=== PATIENT | male | born 1950 | race Caucasian/White ===

== ENCOUNTER 2016-08-27 | Outpatient (CLI) | payer MEDICARE | END 2016-08-27 10:01 | disposition home or self-care (01) ==

== ENCOUNTER 2016-09-30 | Outpatient (CLI) | payer MEDICARE | END 2016-09-30 11:21 | disposition home or self-care (01) ==

== ENCOUNTER 2016-10-28 10:40 | Outpatient (CLI) | payer MEDICARE | END 2016-10-28 10:41 | disposition home or self-care (01) | DX: Z51.5 Encounter for palliative care (principal); I71.03 Dissection of thoracoabdominal aorta; L03.116 Cellulitis of left lower limb; G89.4 Chronic pain syndrome; C34.90 Malignant neoplasm of unspecified part of unspecified bronchus or lung; I25.10 Atherosclerotic heart disease of native coronary artery without angina pectoris; Z98.890 Other specified postprocedural states; G89.29 Other chronic pain; R06.00 Dyspnea, unspecified; Z79.891 Long term (current) use of opiate analgesic; R53.83 Other fatigue; Z66 Do not resuscitate; G24.9 Dystonia, unspecified; K59.00 Constipation, unspecified; R25.1 Tremor, unspecified; F33.9 Major depressive disorder, recurrent, unspecified; F41.9 Anxiety disorder, unspecified; J44.9 Chronic obstructive pulmonary disease, unspecified; M48.06 Spinal stenosis, lumbar region ==

== ENCOUNTER 2016-11-25 11:00 | Outpatient (CLI) | payer MEDICARE | END 2016-11-25 11:01 | disposition home or self-care (01) | DX: Z51.5 Encounter for palliative care (principal); G89.4 Chronic pain syndrome; F41.9 Anxiety disorder, unspecified; F32.9 Major depressive disorder, single episode, unspecified; R53.1 Weakness; I71.03 Dissection of thoracoabdominal aorta; L03.116 Cellulitis of left lower limb; C34.90 Malignant neoplasm of unspecified part of unspecified bronchus or lung; I25.10 Atherosclerotic heart disease of native coronary artery without angina pectoris; R06.02 Shortness of breath; K59.00 Constipation, unspecified; G24.9 Dystonia, unspecified; M19.90 Unspecified osteoarthritis, unspecified site; Z79.891 Long term (current) use of opiate analgesic; J44.9 Chronic obstructive pulmonary disease, unspecified; Z66 Do not resuscitate; Z99.81 Dependence on supplemental oxygen ==

== ENCOUNTER 2016-12-30 11:00 | Outpatient (CLI) | payer MEDICARE ==
--- NOTE | 2017-01-02 08:54 | CONSULTATION NOTE ---
DATE OF CONSULTATION: 12/30/2016 00:00:00 REQUESTING PROVIDER: Cristian Higginbotham MD TIME OF VISIT: 1111:45. TOPIC: Followup palliative care consult. Thank you, Dr. Higginbotham, for asking the Palliative Care Consult Service to be involved in the care of your patient. I am providing support for pain and symptom management, as well as goals of care. The patient is seen in his home setting secondary to the considerable and taxing effort for the patient t o leave the home, as well as to facilitate care conference and evaluate medication adherence in the h ome setting. BRIEF HISTORY OF PRESENT ILLNESS UPDATE: This is a 66-year-old gentleman who has a long and complicat ed history that includes a type B aortic dissection diagnosed in 01/2013 with progression noted in , history of stage IV lung cancer for which he had lobectomy with both radiation and chemotherap y, and in 03/2016 presented with right apical lung mass and periadrenal mass when he was hospitalized for cellulitis of his left leg. He does have longstanding chronic pain specific to his stenosis and has been living in what he calls the "[facility] [place]," waiting for an end-of-life event either attribu bishnu to his cancer or to his aortic dissection. Given his longstanding depression and anxiety, we had negotiated, at our last visit, that he would fo llow up with the oncologist, to get some kind of direction, as far as his overall health and planning for the future. This appointment is set with Dr. Soriano on 01/04/2017 of this month. He does remain quite anxious about this, is unclear if he wants it to be positive, or, if it is negative, he is als o concerned about his longstanding quality of life and chronic health issues. He is already thinking ahead about followup with his thoracic surgeon. He was redirected to try and just stay centered with one step at a time. What he has noted recently is some increased pain in his left lower chest/thoracic area. This is wher e the original site of the cancer is, which has heightened his anxiety. He also is reporting increase d right hip pain that gets worse going up and down as well. Overall his pain is currently managed on his oxycodone 10 mg 2 tablets t.i.d., his meloxicam 7.5 mg b.i.d., as well as some intermittent Valiu m, more focused on his anxiety. He is remaining weight neutral at 225. His appetite has been good. He has had increased episodes of breathlessness, though these do not always translate into hypoxia, and he is only wearing his oxygen intermittently. He does have increased respiratory effort noted with b reathing. CODE STATUS: The patient does have a POLST, DO NOT ATTEMPT RESUSCITATION, LIMITED INTERVENTIONS, DETE RMINE USE OF ANTIBIOTICS WITH COMFORT THE GOAL, WELL NO MEDICALLY ASSISTED NUTRITION; has no t resolved the problem of DPOA yet. SOCIAL HISTORY: The patient is since 11/2014. His friend, Radha, who recently has moved in, h e is saying that they are having some difficulty, which is unfortunate, as he does need assistance an d will need long-term care planning if Radha is not going to be part of his care team. I will leave a message for the medical palliative care social media content manager, as she was not present today for the visit. PERFORMANCE STATUS: The patient is only able to ambulate short distances in his home without exacerba tion of his pain. He is able to independently bathe. He does get quite frustrated and often overdoes activity that tends to exacerbate his pain. I would put him at a palliative care performance status o f 60%. REVIEW OF SYSTEMS HEENT: He has dystonia attributed to his aneurysm. His voice remains soft and raspy. CARDIOVASCULAR: Left chest pain as noted above. RESPIRATORY: He does have shortness of breath, is inconsistent with his oxygen use. No cough, but villegas s get winded with activity. GASTROINTESTINAL: Constipation, currently controlled. GENITOURINARY: He denies any trouble with voiding. MUSCULOSKELETAL: He remains quite deconditioned with lower extremity weakness; does spend quite a bit of time sitting in a chair. INTEGUMENTARY: His skin is quite dry. NEUROLOGIC: He does have short-term memory problems. Does have tremors in his upper extremities, this is longstanding. PSYCHIATRIC: He continues to struggle with depression and anxiety; does feel like this is exacerbated the closer we are getting to his oncology appointment. ENDOCRINE: No history of diabetes or hypothyroidism. HEMATOLOGIC/IMMUNOLOGIC: No further difficult with his teeth. No recurrent cellulitis. He reports his swelling has improved, and he is not wearing his hose today. PHYSICAL EXAMINATION GENERAL: The patient is quite fatigued, somewhat leahy in color. Gets breathless with conversation. Hi s voice is soft and raspy. HEENT: His eyes have periorbital edema. His mucous membranes are moist. He does have poor dentition. NECK: Trachea midline. RESPIRATORY: Breath sounds are diminished throughout, the left lower lobe without breath sounds. No w heezing, crackles, or rhonchi. His O2 saturations are 95% at rest. CARDIOVASCULAR: His pulse is 72, blood pressure 138/82, temperature 95.6. ABDOMEN: Soft. SKIN: Color pale. EXTREMITIES: He is able to get from sitting to standing, ambulates short distance with some increase in pain behaviors. IMPRESSION: This is a 66-year-old gentleman with multiple serious underlying illnesses, chronic obstr uctive pulmonary disease, history of lung cancer with a mass, and an aortic aneurysm. He perceives hi s quality of life as quite poor, his pain is only moderately controlled, as well as ongoing anxiety a nd depression. MEDICATION ALLERGIES 1. PENICILLIN. 2. AMOXICILLIN. 3. CLINDAMYCIN. MEDICATION LIST 1. Gabapentin 900 t.i.d. 2. Amlodipine 2.5 mg daily. 3. Labetalol 100 mg b.i.d. 4. Diazepam 5 mg 1-2 tabs up to 4 times a day. 5. Oxycodone 2 tabs t.i.d. 6. Extended release Tylenol 650 mg b.i.d. 7. Meloxicam 7.5 mg b.i.d. 8. Multivitamin daily. 9. Senna with ALEKSANDAR 2 tabs b.i.d. 10. Effexor 75 mg daily. RECOMMENDATIONS/COUNSELING DONE 1. Chronic pain, multifactorial in origin. He has longstanding lumbar stenosis. He is on his oxycodon e 10 mg 2 tabs every 8 hours, as well as his gabapentin 900 mg TID. We had initiated Mobic to 7.5 mg b.i.d., with unclear benefit at this point in time. Patient is most likely a better candidate for carlos ething more long acting; he does not have pharmacy benefit; did explore methadone as an option, but nirmala yanez reports had a bad response when he tried it previously. We will await outcome of his oncology appoi ntment before titrating meds further. 2. Anxiety. This is somewhat exacerbated with his increased stress with his caregiver, impending onco logy appointment, and his brother Sukh's health status. He has increased his Valium use somewhat to b e able to sleep better at night but was remaining within his allotted 4 per day. 3. Depression without psychotic features. This had improved; it is unclear if this has exacerbated or is anxiety, at this point in time we will not titrate meds. 4. Generalized weakness. Patient remains somewhat unmotivated to be more active; have suggested vario us ways to improve his activity level, but he continues with barriers, particularly around pain and e nergy. 5. Advanced care planning. We are moving forward, as far as evaluating his underlying disease burden. He does have an appointment with the oncologist, as he now may need some support in the future some personal care and will follow up with the medical palliative care social media content manager, and as well needs a durable power of finance attorney for health care. Time spent 45 minutes, with greater than 50% of this done in counseling and coordination of care, naila ghing benefits and burdens regarding adjustment of pain medication, counseling for anxiety, and antic ipatory guidance. JOB #: [id number] EXT JOB #:[id number]
== END 2016-12-30 11:01 | disposition home or self-care (01) ==
LOC: PC 11:00
PROVIDERS: ATTEND Nurse Practitioner Adult Health
DX: Z51.5 Encounter for palliative care (principal); G89.29 Other chronic pain; F41.9 Anxiety disorder, unspecified; F32.9 Major depressive disorder, single episode, unspecified; R53.1 Weakness; I71.00 Dissection of unspecified site of aorta; Z85.118 Personal history of other malignant neoplasm of bronchus and lung; R91.8 Other nonspecific abnormal finding of lung field; E27.9 Disorder of adrenal gland, unspecified; R07.9 Chest pain, unspecified; Z99.81 Dependence on supplemental oxygen; Z66 Do not resuscitate; G24.9 Dystonia, unspecified; R06.02 Shortness of breath; K59.00 Constipation, unspecified
CPT/HCPCS: 99349

== ENCOUNTER 2017-01-25 14:18 | Outpatient (CLI) | payer MEDICARE ==
--- NOTE | 2017-01-26 06:09 | CONSULTATION NOTE ---
DATE OF CONSULTATION: 01/25/2017 00:00:00 REQUESTING PROVIDER: Cristian Higginbotham MD. TIME OF VISIT: 2:00 p.m. to 2:45 p.m. TOPIC: Followup palliative care consult. Thank you Dr. Higginbotham for asking the palliative care consult service to be involved in the care of y our patient. I am providing support for pain and symptom management, as well as goals of care. HISTORY OF PRESENT ILLNESS: This is a 66-year-old gentleman who has a long and complicated history th at includes a type C aortic dissection diagnosed in 01/2013 with progression noted in May 2016. 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 Postoperatively received adjuvant chest radiotherapy and 4 cycles of carboplatin /Alimta which ended in 2009. In January of 2013 was when he had his acute aortic dissection which was managed wi medical therapy. In followup with the oncologist, he has mostly had progressive shortness of breat h and decreased activity. He did get a followup CT scan that does show the right apical nodular opaci ty, but it was unchanged, the previous aortic dissection involving the aortic arch and extending into the descending thoracic aorta in the abdomen was unchanged, as well. So, the patient's underlying "l kong threatening" conditions do appear to be stable at this point in time. In reviewing this with the patient he reports he has partially felt relieved and partially disappointed as he has continued to h ave diminished quality of life. The patient has had progressive breathlessness. Patient requires continuos oxygen at 1-2 liters per n patience cannula. Today we are measuring his oxygen saturations and looking at his oxygen qualification. Off room air with 60-feet of walking he does decrease to 84% with increased respiratory rate of about 28. In sitting it took him about 90% to recover at 2 minutes. After 5 minutes he was up to about 96% . His breath sounds are diminished throughout, particularly in the area of his left upper lobectomy. He presents with no productive cough, though, does report dry cough that he attributes to ongoing all ergies. He does have an Albuterol nebulizer which he has not used. His oncologist did encourage him t o be more aggressive with his pulmonary toilet. We did actually approach possibly looking at pulmonar y rehab. Please see palliative care discussion below. The patient does, at baseline, wear his oxygen at 1 to 2 liters. Today he came in to the outpatient setting and did not bring his oxygen and present ed with very poor activity tolerance and desaturating with any kind of activity as noted above. The patient has longstanding chronic back pain which increases with standing. He remains on oxycodone 10 mg 2 tabs t.i.d. and his meloxicam 7.5 mg b.i.d. This continues to limit his activity and provide s him significant decrease in quality of life. He continues with fatigue and activity intolerance. He denies nausea, his appetite has been good. His weight has been stable at 228.3. Shortness of breath as noted above. He does appear to be much more depressed today, staying much more perseverative and p ervasive as far as his depressed feelings and does admit to increased anxiety with maximizing his use of Valium at 3 to 4 tabs a day, mostly using though at bedtime to help him sleep. He does have longs tanding PTSD and general anxiety disorder. He does perceive his quality of life as quite poor. CODE STATUS: THE PATIENT HAS A POLST, DO NOT ATTEMPT RESUSCITATION, LIMITED INTERVENTIONS, DETERMINE THE USE OF ANTIBIOTICS WITH COMFORT THE GOAL, WELL NO MEDICALLY ASSISTED NUTRITION. He has n ot resolved the problem of his DPOA yet. SOCIAL HISTORY: The patient has been since 11/2014. His new roommate, Radha, they are having some difficulty as far as communication and just sharing "space." They have known each other long ter m and I suspect there has continued to be some tension and strife between them. PERFORMANCE STATUS: The patient is only able to ambulate short distance without exacerbation of his p ain or dyspnea. He has been able to independently bathe. He does sometimes push and overdue his activ ity that exacerbates his pain. I would put him at a palliative care performance status of 60%. ENT: He does report "allergies." He does have mild hearing loss. CARDIOVASCULAR: Denies chest pain. RESPIRATORY: As noted above. GASTROINTESTINAL: Constipation is currently controlled. GENITOURINARY: Not addressed. MUSCULOSKELETAL: He is quite deconditioned with lower extremity weakness. Reports he spends about 80% of his time sitting in a chair. INTEGUMENT: His skin is quite dry and flaky. NEUROLOGIC: He does have intermittent short term memory problems, continued tremors in both upper ext remity, this is longstanding. PSYCHIATRIC: He continues to struggle with his depression and anxiety. This does appear to have exace rbated. We did spend some time exploring some triggers, particularly related to his oncology appointm ent. This has been longstanding high anxiety point for him. ENDOCRINE: No history of diabetes or hypothyroidism. HEMATOLOGIC/IMMUNOLOGIC: Has not had any further infections. PHYSICAL EXAMINATION: GENERAL: The patient is actually a little bit better groomed today, somewhat leahy in color. Gets kelsey thless with conversation. His voice is soft and raspy. HEENT: Continues with periorbital edema. His mucous membranes are moist. He does have poor dentition. NECK: His trachea is midline. RESPIRATORY: Breath sounds as noted above. Saturations as noted above. CARDIOVASCULAR: His temperature is 36.9, blood pressure 145/86, pulse is 83. ABDOMEN: Rounded and soft. SKIN: Quite dry and peely. EXTREMITIES: He is able to get from sitting to standing with some assistance. He is using his cane as an assistive device. He is pacing himself and noted pain behaviors with ambulation. This is a 66-year-old gentleman with multiple serious underlying illnesses, chronic obstructive pulmo nary disease, history of lung cancer and an aortic aneurysm. He perceives his quality of life as quit e poor. Does present with exacerbation of his depression and anxiety. MEDICATION ALLERGIES: 1. PENICILLIN. 2. AMOXICILLIN. 3. CLINDAMYCIN. MEDICATION LIST: 1. Gabapentin 900 mg t.i.d. p.o. 2. Amlodipine 2.5 mg p.o. daily. 3. Labetalol 100 mg p.o. b.i.d. 4. Diazepam 5 mg 1 to 2 tablets up to 4 times a day p.o. 5. Oxycodone 10 mg p.o. 2 tabs t.i.d. 6. Extended release Tylenol 650 mg p.o. b.i.d. 7. Meloxicam 7.5 mg p.o. b.i.d. 8. Multivitamin daily 1 tab p.o. daily. 9. Senna with ALEKSANDAR 2 tabs p.o. up to b.i.d. 10. Effexor, will increase this to 100 mg daily today. Prescriptions for his diazepam, Effexor, and oxycodone were provided. RECOMMENDATIONS/COUNSELING DONE: 1. Chronic pain, multi-factorial in origin. He has longstanding lumbar stenosis. He is on his oxycodo ne 10 mg 2 tabs every 8 hours, as well as gabapentin 900 mg t.i.d. Had initiated Mobic 7.5 mg b.i.d. At this point in time he is satisfied with his current regimen. He continues to have barriers regardi ng his pharmacy benefit. I do believe he would benefit from some physical therapy, but continues to p ut up road blocks regarding this. 2. Anxiety. This is exacerbated with his latest appointment and anxiety waiting for the results regar ding his Oncology appointment. He is getting ready to go visit his brother, Sukh, who is a quadripleg ic, down at the [place]. Has had very mixed feelings about this and feels this has triggered some of this. He had been increasing his Valium use to be able to sleep better at night. Counseling was done weigh ing benefits and burdens. Will go ahead and increase his Effexor slowly up to 100 mg daily. 3. Depression without psychotic features. This does appear quite pervasive and persistent as far as h is depressed mood. As noted in the last note, will go ahead and titrate his medications. Did challen ge him as far as cognitive behavioral therapy about reframing, patient setting goals and getting out of his house. 4. Generalized weakness. The patient does remain somewhat unmotivated to be more active. Have sugges bishnu given the fact we know he is no longer needing to worry about his progressive lung cancer, to con tinue to work on his health. 5. Dyspnea. Did spend some time counseling and recommending pulmonary rehab. He would be responsible for $40 a visit, but in weighing benefits and burdens it may be a good investment for him. If he want s to go forward with that I will have to get some more recent pulmonary function tests. 6. COPD. Patient requires continuous oxygen at 2 liters related to his hypoxia with activity and acti vity intolerance. TIME SPENT: Forty-five minutes with greater than 50% of this done in counseling regarding benefits an d burdens, addressing his antidepressant, instructing to decrease his Valium use, if possible, talha gillespie for anxiety, cognitive behavioral interventions and anticipatory guidance. JOB #: [id number] EXT JOB #:[id number]
== END 2017-01-25 14:19 | disposition home or self-care (01) ==
LOC: PC 14:18
PROVIDERS: ATTEND Nurse Practitioner Adult Health
DX: Z51.5 Encounter for palliative care (principal); G89.29 Other chronic pain; F41.9 Anxiety disorder, unspecified; F32.9 Major depressive disorder, single episode, unspecified; R53.1 Weakness; R06.00 Dyspnea, unspecified; J44.9 Chronic obstructive pulmonary disease, unspecified; I71.00 Dissection of unspecified site of aorta; Z99.81 Dependence on supplemental oxygen; Z90.2 Acquired absence of lung [part of]; Z79.891 Long term (current) use of opiate analgesic; F43.10 Post-traumatic stress disorder, unspecified; Z66 Do not resuscitate; Z85.118 Personal history of other malignant neoplasm of bronchus and lung
CPT/HCPCS: 99215

== ENCOUNTER 2017-02-23 15:30 | Outpatient (CLI) | payer MEDICARE ==
--- NOTE | 2017-02-23 23:42 | PROVIDER PROGRESS NOTE ---
Palliative Care Follow Up - Referral Referring Provider: Cristian Higginbotham MD Referral setting: Home (Seen in home setting secondary to breathlessness and facilitating conference with diversity intern Radha.) - Information Sources History obtained from: Patient Exam limitations: No limitations - History of Present Illness Update Brief HPI Update: This is a 66-year-old gentleman with a long and complicated history including aortic dissection diagnosed in January 2013 with progression noted in May 2016 , history of stage IV lung cancer for which he had lobectomy with both radiation and chemotherapy, and in Mar 2016 presented with R apical lung mass and a ender-adrenal mass during a hospitalization for L leg cellulitis. He has long-standing chronic pain related to spondylosis of the lumbar and osteoarthritis in multiple joints, most significantly in R hip. On 01/17/2017 he had a follow-up CT scan showing the right apical nodular opacity was unchanged from the previous CT scan, as was the left upper lobectomy and the aortic dissection. So these life-threatening conditions appear to be stable at this time. In addition his chronic breathlessness has remained unchanged since his last visit with palliative care. He was not on oxygen during the visit and several times was able to get up from his chair and walk short distances without it. He just started to use his Albuterol nebulizer again in the past several days. His resting O2 sat is 95% which he reports is normal for hi. When we discussed the option of pulmonary rehabilitation, he states he will do it when they start offering free classes. (Co-pay is $40/session.) His biggest complaint is his chronic back pain limits his mobility and ability to do things like take a road trip or be more active. Pain levels on current opioid and gabapentin regimen are stable and he is satisfied. I counselled regarding increasing his activity to break the chronic pain cycle. He admitted that he losing weight for a period a few years ago lessened his pain. He has noticed his left foot doesnt work. I recommended evaluation with PT for possible foot drop, counselling him on the safety issue and risks involved with falls and hip fractures. He is reluctant to follow any therapy because he can t afford it. His R hip is painful and was told some years ago that it likely will need eventual replacement. His L hip replaced years ago, perhaps 2005. He has not noticed an improvement in his depression but admitted that he only started the Venlafaxine 100mg dosage 3 days ago because he wanted to use up the old medication first. Social History - Living Situation Living arrangement: At home Living Situation: With friend(s) (Radha) Medications/Allergies - Medications Home Medications: Ambulatory Orders Medication Instructions Recorded Confirmed Diazepam [Valium] 2 tab PO QID PRN MDD 2 tabs up to 02/16/13 02/24/17 q.i.d. Labetalol [Trandate] 200 mg PO TID 02/27/13 02/25/17 Gabapentin [Neurontin] 900 mg PO TID 05/16/16 02/24/17 Oxycodone HCl 20 mg PO TID 05/16/16 02/25/17 amLODIPine [Norvasc] 2.5 mg PO DAILY 05/16/16 05/16/16 Sennosides/Docusate Sodium 2 tab PO MDD up to BID 05/17/16 05/17/16 [Senna-S Tablet] Acetaminophen [Tylenol] 650 mg PO BID 02/25/17 02/25/17 Meloxicam 7.5 mg PO BID 02/25/17 02/25/17 Multivitamin [Multiple Vitamins] 1 tab PO DAILY 02/25/17 02/25/17 Venlafaxine HCl 100 mg PO DAILY 02/25/17 02/25/17 - Allergies Allergies/Adverse Reactions: Allergies Allergy/AdvReac Type Severity Reaction Status Date / Time Penicillins Allergy Rash Verified 10/16/15 11:35 Review of Systems - Constitutional Constitutional: reports: Other (limited activity tolerance due to chronic back pain) - Cardiovascular Cariovascular: reports: Other. denies: Chest pain - Respiratory Respiratory: reports: SOB with exertion - Gastrointestinal Gastrointestinal: denies: Abdominal pain - Musculoskeletal Musculoskeletal: reports: Back pain (long-standing, chronic), Muscle weakness ( lower extremities), Joint pain (R hip.), Other (L hip has been replaced) - Neurological Neurological: reports: Other (numbness in lower extremities; left "foot drop") - Psychiatric Psychiatric: reports: Depression (no change), Anxiety (no change) Physical Examination - Vital Signs Temperature: 96.3 C Pulse Rate: 60 O2 Saturation: 95 Blood Pressure: 140/98 - Physical Exam General Appearance: positive: No acute distress Eyes Bilateral: positive: EOMI, No lid inflammation, No scleral icterus ENT: positive: No signs of dehydration Neck: positive: Trachea midline Respiratory: positive: Chest non-tender, No respiratory distress. negative: Breath sounds nml (diminished breath sounds) Cardiovascular: positive: Regular rate & rhythm Abdomen: positive: Non-tender, No organomegaly, Nml bowel sounds, No distention Skin: positive: No symptoms Extremities: positive: Nml appearance, No pedal edema Neurologic/Psychiatric: positive: Oriented x3, Motor nml, Sensation nml, Mood/ affect nml Palliative Care - POLST Patient has POLST: Yes POLST Status: DNR, Limited Interventions Pain: Pain unchanged Drowsiness: None Nausea: None Anxiety: Moderate (4-6) Dyspnea: Moderate (4-6) Anorexia: None Insomnia: Sleeps well Constipation: No Feelings of wellbeing/Perceived Quality of Life: No change Performance Status: Previous level of function prior to this episode: Limited due to chronic pain and breathlessness. 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 He is able to perform ADLs and IADLs and has the assistance of his friend/roommate Radha who lives at his house and helps him with driving, etc. Current level of functioning: Unchanged Palliative Care Performance Status: 70% - Palliative Care Discussion: Who is present: The patient, his friend and helper Radha, and myself. Surrogate decision maker: Sukh Dimas, brother Patient/Family understanding of the illness: He complains of pain limiting his mobility and that he cant participate in activities or travel, but is expresses reluctance or inaction at various recommendations (yoga, PT) to help break the pain cycle. He views his quality of life as relative: in relation to his brother who is quadriplegic, it is good; when he compares it to friends who take road trips, or are able to go out surfing, he perceives it as limited. Radha voiced concern over his risk of falling due to his L foot drop. I provided savings counselor and information foot drop and risk of falls and sequelae. Most important goals: His weekend job is important to him as he relies on the additional income and it is also a means of social connection. He has worked there a long time, though in a different capacity than in the past, when he was able to perform more strenuous activity. He has a good relationship with the owners and is well-known amongst the customers, and he enjoys and looks forward to the social interaction. He is consistenly reluctant to pursue therapy that could help with his pain, mobility issues, and dyspnea, not willing to pursue PT or pulmonary therapy. This is related to financial concerns but could likely related to his depression. Patient/family concerns: His anxiety is somewhat alleviated after imaging revealed that lung nodule and AAA have not worsened. He continues to perceive quality of life as low due to his limited mobility secondary to pain and breathlessness. Finances are a major concern and contribute to his reluctance to pursue either physical therapy or pulmonary therapy. Family Conference: Radha present; AKASH not present. Impression and Recommendations - Palliative Care Impression: This is a 66-year-old gentleman with multiple serious underlying illnesses including COPD, h/o lung cancer and an aortic aneurysm. Pain is moderately controlled, depression and anxiety are on-going. Recommendations/Counseling Done: 1. Chronic pain: Recommended evaluation with Physical Therapy. Pain levels are stable on current regimen of gabapentin 900mg TID and oxycodone 20mg TID. Continue Senna with Omer 2 tabs up to BID for opioid-induced constipation. He is [facility] through the current cycle of oxycodone and diazepam and we agreed he will call for a refill in two weeks, and then well change our visit schedule to coincide with opioid refills. If stable, visits can be scaled back to every month. 2. Anxiety: Managed with Valium 5mg 1 tab up to four times a day. He usually takes 2 at night. 3. Depression: He just started the new dosing of venlafaxine (100mg daily). Monitor for improvement at next visit. 4. Dyspnea: Recommend pulmonary rehabilitation. Continue oxycodone and nebulizer treatments. Time Spent: 45 minutes with greater than 50% of this done in counseling and coordination of care, and weighing benefits and burdens of different treatment options.
== END 2017-02-23 15:31 | disposition home or self-care (01) ==
LOC: PC 15:30
PROVIDERS: ATTEND Nurse Practitioner
DX: Z51.5 Encounter for palliative care (principal); G89.29 Other chronic pain; Z79.891 Long term (current) use of opiate analgesic; F41.9 Anxiety disorder, unspecified; F32.9 Major depressive disorder, single episode, unspecified; R06.00 Dyspnea, unspecified; I71.00 Dissection of unspecified site of aorta; Z85.118 Personal history of other malignant neoplasm of bronchus and lung; R91.8 Other nonspecific abnormal finding of lung field; M19.91 Primary osteoarthritis, unspecified site; Z79.51 Long term (current) use of inhaled steroids; R06.09 Other forms of dyspnea; M62.81 Muscle weakness (generalized); Z66 Do not resuscitate; I71.4 Abdominal aortic aneurysm, without rupture; J44.9 Chronic obstructive pulmonary disease, unspecified
CPT/HCPCS: 99349

== ENCOUNTER 2017-05-04 13:10 | Outpatient (CLI) | payer MEDICARE ==
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
== END 2017-05-04 13:11 | disposition home or self-care (01) ==
LOC: PC 13:10
PROVIDERS: ATTEND Nurse Practitioner
DX: Z51.5 Encounter for palliative care (principal); G89.29 Other chronic pain; M47.9 Spondylosis, unspecified; M16.11 Unilateral primary osteoarthritis, right hip; R05 Cough; J42 Unspecified chronic bronchitis; F41.9 Anxiety disorder, unspecified; Z79.891 Long term (current) use of opiate analgesic; Z79.899 Other long term (current) drug therapy; Z85.118 Personal history of other malignant neoplasm of bronchus and lung; Z86.79 Personal history of other diseases of the circulatory system; Z66 Do not resuscitate
CPT/HCPCS: 99349

== ENCOUNTER 2017-05-23 08:00 | Outpatient (CLI) | payer MEDICARE ==
[2017-05-23 19:33] LABS: BASOPHILS % (AUTO) 0.4 %; EOSINOPHILS # (AUTO) 0.2 10^3/uL (0.0-0.7); EOSINOPHILS % (AUTO) 3.2 %; HCT - HEMATOCRIT 45.4 % (42.0-52.0); HGB - HEMOGLOBIN 14.8 g/dL (14.0-18.0); LYMPHOCYTES # (AUTO) 1.1 10^3/uL (1.5-3.5); LYMPHOCYTES % (AUTO) 14.7 %; MEAN CORPUSCULAR HEMOGLOBIN 30.1 pg (27.0-31.0); MEAN CORPUSCULAR HGB CONC 32.6 g/dL (32.0-36.0); MEAN CORPUSCULAR VOLUME 92.2 fL (80.0-94.0); MEAN PLATELET VOLUME 8.5 fL (7.4-11.4); MONOCYTES # (AUTO) 0.6 10^3/uL (0.0-1.0); MONOCYTES % (AUTO) 7.8 %; NEUTROPHILS # (AUTO) 5.4 10^3/uL (1.5-6.6); NEUTROPHILS % (AUTO) 73.9 %; RED BLOOD COUNT 4.92 10^6/uL (4.70-6.10); RED CELL DISTRIBUTION WIDTH 13.7 % (12.0-15.0); UNCORRECTED WHITE BLOOD COUNT 7.3 x10^3/uL; WHITE BLOOD COUNT 7.3 x10^3/uL (4.8-10.8)
[2017-05-23 19:37] LABS: ALBUMIN/GLOBULIN RATIO 1.5 (1.0-2.2); BILIRUBIN,TOTAL 0.6 mg/dL (0.2-1.0); CALCIUM 9.2 mg/dL (8.5-10.3); POTASSIUM 4.9 mmol/L (3.5-5.0); TOTAL PROTEIN 6.8 g/dL (6.7-8.2)
== END 2017-05-23 08:01 ==
LOC: LAB.WCP 08:00
PROVIDERS: ATTEND Physician Assistant Medical
DX: R05 Cough (principal); J44.9 Chronic obstructive pulmonary disease, unspecified; C34.90 Malignant neoplasm of unspecified part of unspecified bronchus or lung; Z51.81 Encounter for therapeutic drug level monitoring; Z79.899 Other long term (current) drug therapy
CPT/HCPCS: 36415; 80053; 85025

== ENCOUNTER 2017-05-30 11:58 | Outpatient (CLI) | payer MEDICARE ==
[2017-05-30] MEDS ORDERED: IOPAMIDOL-300 100 ML VIAL ONE (12:23)
[2017-05-30] MEDS ORDERED: IOPAMIDOL-300 100 ML VIAL IVP ONE (13:20)
--- NOTE | 2017-05-30 15:30 | CT Report ---
CT OF THE CHEST WITH CONTRAST: 05/30/2017 CLINICAL INDICATION: Chronic cough, COPD. TECHNIQUE: Axial CT images of the chest were obtained with 80 mL of Isovue-300 intravenously. COMPARISON: 05/16/2016. FINDINGS: The heart is not enlarged. Known type B aortic dissection appears unchanged from previous. Postoperative changes in the left hilum are stable. The lungs again demonstrate emphysema and apical scarring. Right apical nodule has decreased from previous, now measuring 1.4 cm maximal diameter, and likely represents confluent apical scar. No new consolidation, effusion, or pneumothorax is present. Limited evaluation of upper abdominal structures demonstrates normal adrenal glands. The osseous structures demonstrate degenerative and postsurgical changes. IMPRESSION: 1. STABLE EMPHYSEMA AND BIAPICAL SCARRING. 2. STABLE POSTOPERATIVE CHANGES IN THE LEFT CHEST. 3. STABLE AORTIC DISSECTION. 4. THE PREVIOUSLY NOTED NODULE AT THE RIGHT APEX HAS DECREASED IN SIZE, NOW MEASURING 1.4 CM MAXIMAL DIAMETER (PREVIOUSLY 1.7 CM), AND IS LIKELY A COMPONENT OF THE APICAL SCARRING. In accordance with CT protocol optimization, one or more of the following dose reduction techniques were utilized for this exam: automated exposure control, adjustment of mA and/or KV based on patient size, or use of iterative reconstructive technique. JOB #: [id number] EXT JOB #: MTDD
== END 2017-05-30 11:59 | disposition home or self-care (01) ==
LOC: DI 11:58
PROVIDERS: ATTEND Physician Assistant Medical
DX: J43.9 Emphysema, unspecified (principal); I71.00 Dissection of unspecified site of aorta
CPT/HCPCS: 71260; Q9967

== ENCOUNTER 2018-05-18 08:00 | Outpatient (CLI) | payer MEDICARE | END 2018-05-18 08:01 | disposition home or self-care (01) | LOC: LAB.R 08:00 | PROVIDERS: ATTEND Family Medicine | DX: L72.3 Sebaceous cyst (principal) ==

== ENCOUNTER 2018-09-07 11:23 | Outpatient (CLI) | payer MEDICARE ==
[2018-09-07 11:39] LABS: BASOPHILS % (AUTO) 0.4 %; EOSINOPHILS # (AUTO) 0.1 10^3/uL (0.0-0.7); EOSINOPHILS % (AUTO) 1.6 %; HGB - HEMOGLOBIN 14.2 g/dL (14.0-18.0); LYMPHOCYTES # (AUTO) 0.8 10^3/uL (1.5-3.5); LYMPHOCYTES % (AUTO) 14.7 %; MEAN CORPUSCULAR HEMOGLOBIN 30.9 pg (27.0-31.0); MEAN CORPUSCULAR VOLUME 93.7 fL (80.0-94.0); MONOCYTES # (AUTO) 0.5 10^3/uL (0.0-1.0); MONOCYTES % (AUTO) 8.5 %; NEUTROPHILS # (AUTO) 4.2 10^3/uL (1.5-6.6); NEUTROPHILS % (AUTO) 74.8 %; PLT - PLATELET COUNT 201 10^3/uL (130-450); RED CELL DISTRIBUTION WIDTH 13.2 % (12.0-15.0); WHITE BLOOD COUNT 5.6 x10^3/uL (4.8-10.8)
[2018-09-07 11:56] LABS: ALBUMIN 4.2 g/dL (3.2-5.5); ALBUMIN/GLOBULIN RATIO 1.3 (1.0-2.2); ALKALINE PHOSPHATASE 81 IU/L (42-121); ALT ALANINE AMINOTRANSFERASE 17 IU/L (10-60); AST ASPARTATE AMINOTRANSFERASE 23 IU/L (10-42); BILIRUBIN,TOTAL 0.7 mg/dL (0.2-1.0); BUN - BLOOD UREA NITROGEN 26 mg/dL (6-20); CARBON DIOXIDE - CO2 33 mmol/L (21-32); CHLORIDE 98 mmol/L (101-111); CHOL/HDL RATIO 4.6 (<5.0); CHOLESTEROL 205 mg/dL; GFR - MDRD 74 (>89); GLUCOSE 119 mg/dL (70-100); HDL CHOLESTEROL 45 mg/dL; LDL CHOLESTEROL,CALCULATED 134 mg/dL; SODIUM 140 mmol/L (135-145); TOTAL PROTEIN 7.4 g/dL (6.7-8.2); VLDL CHOLESTEROL 26 mg/dL
== END 2018-09-07 11:24 | disposition home or self-care (01) ==
LOC: LAB 11:23
PROVIDERS: ATTEND Family Medicine
DX: E78.5 Hyperlipidemia, unspecified (principal); I25.10 Atherosclerotic heart disease of native coronary artery without angina pectoris; J45.909 Unspecified asthma, uncomplicated; C34.90 Malignant neoplasm of unspecified part of unspecified bronchus or lung; I10 Essential (primary) hypertension
CPT/HCPCS: 36415; 80053; 80061; 83721; 84443; 85025

== ENCOUNTER 2018-11-07 11:34 | Outpatient (CLI) | payer MEDICARE ==
[2018-11-07 19:16] LABS: CALCIUM 8.7 mg/dL (8.5-10.3); CREATININE 0.9 mg/dL (0.6-1.2)
== END 2018-11-07 11:35 | disposition home or self-care (01) ==
LOC: LAB.WCP 11:34
PROVIDERS: ATTEND Family Medicine
DX: Z12.5 Encounter for screening for malignant neoplasm of prostate (principal)
CPT/HCPCS: 36415; 80048; G0103; 84153

== ENCOUNTER 2019-02-13 09:55 | Outpatient (CLI) | payer MEDICARE ==
--- NOTE | 2019-02-13 14:23 | XRAY Report ---
Reason: COUGH,CHRONIC/HYPOXEMIA Procedure Date: 02/13/2019 Accession Number: [id number] / [id number] Procedure: [facility]CP - Chest 2 View X-Ray CPT Code: 03673 FULL RESULT: EXAM: CHEST RADIOGRAPHY EXAM DATE: 02/13/2019 10:32 AM. CLINICAL HISTORY: Cough, chronic/hypoxemia. COMPARISON: CHEST W/ 05/30/2017 1:04 PM. TECHNIQUE: 2 views. FINDINGS: Lungs/Pleura: Postsurgical changes in the left hilar region and volume loss attest to prior lobectomy. There are abnormal lung markings within the aerated left lung, interstitial in appearance, nonspecific. Right lung is clear as seen. There is likely a small left pleural effusion. No effusion on the right. No sizable pneumothorax. Mediastinum: The cardiomediastinal silhouette is partially obscured by left-sided pulmonary volume loss and chronic elevation of the left hemidiaphragm, better seen on the 2017 CT, overall stable when accounting for differences in technique. Other: None. IMPRESSION: Abnormal appearance of the residual left lung with interstitial markings and acute airspace disease difficult to exclude on the left. Favor postsurgical findings versus edema in the setting of a small surrounding pleural effusion. No wilbert lobar consolidation. RADIA
== END 2019-02-13 09:56 | disposition home or self-care (01) ==
LOC: DI.WCP 09:55
PROVIDERS: ATTEND Family Medicine
DX: R91.8 Other nonspecific abnormal finding of lung field (principal)
CPT/HCPCS: 71046

== ENCOUNTER 2019-02-14 17:59 | Outpatient (CLI) | payer MEDICARE | END 2019-02-14 18:00 | disposition critical access hospital (66) | LOC: EMS 17:59 | PROVIDERS: ATTEND Surgery | DX: R46.4 Slowness and poor responsiveness (principal); R05 Cough; R09.89 Other specified symptoms and signs involving the circulatory and respiratory systems; Z99.81 Dependence on supplemental oxygen | CPT/HCPCS: A0425; A0429 ==

== ENCOUNTER 2019-02-14 18:13 | Emergency (ER) | payer MEDICARE ==
--- NOTE | 2019-02-14 18:40 | ED Physician Documentation ---
History of Present Illness - Stated complaint Stated Complaint: ALOC - Chief complaint Chief Complaint: General - History obtained from History obtained from: Patient, Family, EMS - History of Present Illness Timing: Today Pain level max: 0 Pain level now: 0 Improved by: oxygen, time Worsened by: not wearing his oxygen, normally on 2-3 liters - Additonal information Additional information: 68-year-old male presents to the emergency department after confusion earlier today. His oxygen was off of him for an unknown amount of time today. Oxygen was placed back on him, but found to be confused at that time. Gradually is improved throughout the day. Nearly back to his normal baseline now. No focal neurological deficits. No head injury. No recent illnesses. Mild cough. No vomiting. No abdominal pain. Cough is chronic and unchanged. No trauma. No falls. Review of Systems Ten Systems: 10 systems reviewed and negative Constitutional: denies: Fever, Chills Nose: denies: Rhinorrhea / runny nose, Congestion Throat: denies: Sore throat Cardiac: denies: Chest pain / pressure GI: denies: Abdominal Pain, Nausea, Vomiting, Diarrhea Skin: denies: Rash Musculoskeletal: denies: Neck pain, Back pain Neurologic: denies: Headache PD PAST MEDICAL HISTORY - Past Medical History Cardiovascular: Hypertension, Arrhythmia, Other Respiratory: COPD, Emphysema, Other Endocrine/Autoimmune: None GI: None : None HEENT: None Psych: None Musculoskeletal: Chronic back pain Derm: None - Past Surgical History Past Surgical History: Yes General: Appendectomy, Bowel surgery, Colonoscopy Ortho: Hip replacement Cardiovascular: Lobectomy - Present Medications Home Medications: Ambulatory Orders Medication Instructions Recorded Confirmed Diazepam [Valium] 2 tab PO QID PRN MDD Two 5mg tabs 02/16/13 05/04/17 up to q.i.d. Labetalol [Trandate] 200 mg PO TID 02/27/13 05/04/17 Gabapentin [Neurontin] 900 mg PO TID 05/16/16 05/04/17 Oxycodone HCl 20 mg PO TID MDD six 10mg tabs 05/16/16 05/04/17 amLODIPine [Norvasc] 2.5 mg PO DAILY 05/16/16 05/04/17 Sennosides/Docusate Sodium 2 tab PO MDD up to BID 05/17/16 05/17/16 [Senna-S Tablet] Acetaminophen [Tylenol] 650 mg PO BID 02/25/17 05/04/17 Meloxicam 7.5 mg PO BID 02/25/17 05/04/17 Multivitamin [Multiple Vitamins] 1 tab PO DAILY 02/25/17 05/04/17 Venlafaxine HCl 100 mg PO DAILY 02/25/17 05/04/17 - Allergies Allergies/Adverse Reactions: Allergies Allergy/AdvReac Type Severity Reaction Status Date / Time Penicillins Allergy Rash Verified 02/14/19 18:22 - Social History Does the pt smoke?: No Smoking Status: Former smoker Does the pt drink ETOH?: No Does the pt have substance abuse?: No - Immunizations Immunizations are current?: Yes - POLST Patient has POLST: Yes PD ED PE NORMAL - Vitals Vital signs reviewed: Yes - General General: Alert and oriented X 3, No acute distress, Well developed/nourished - HEENT HEENT: Atraumatic, PERRL, EOMI, Moist mucous membranes - Neck Neck: Supple, no meningeal sign - Cardiac Cardiac: RRR, Strong equal pulses - Respiratory Respiratory: No respiratory distress, Clear bilaterally - Abdomen Abdomen: Soft, Non tender, Non distended - Back Back: No spinal TTP - Derm Derm: Warm and dry, No rash - Extremities Extremities: No calf tenderness / cord - Neuro Neuro: Alert and oriented X 3 - Psych Psych: Normal mood, Normal affect Results - Vitals Vitals: Vital Signs - 24 hr 02/14/19 02/14/19 02/14/19 18:18 19:28 19:54 Temperature 36.8 C Heart Rate 87 84 84 Respiratory 22 18 20 Rate Blood Pressure 116/71 127/77 O2 Saturation 92 93 Oxygen O2 Source Nasal cannula - Labs Labs: Laboratory Tests 02/14/19 02/14/19 02/14/19 18:54 18:54 18:54 WBC 9.4 RBC 3.63 L Hgb 11.3 L Hct 38.5 L MCV 106.1 H MCH 31.1 H MCHC 29.4 L RDW 12.8 Plt Count 185 MPV 10.6 Neut # (Auto) Not Reportable Lymph # (Auto) Not Reportable [place] # (Auto) Not Reportable Eos # (Auto) Not Reportable Baso # (Auto) Not Reportable Absolute Nucleated RBC Not Reportable Total Counted 100 Band Neuts % (Manual) 1 Abnorm Lymph % (Manual) 0 Nucleated RBC % Not Reportable Neutrophils # (Manual) 8.5 H Lymphocytes # (Manual) 0.4 L Monocytes # (Manual) 0.6 Eosinophils # (Manual) 0.0 Basophils # (Manual) 0.0 Differential Comment MANUAL DIFFERENTIAL Manual Slide Review Indicated Platelet Estimate NORMAL (130-450,000) Platelet Morphology NORMAL APPEARANCE RBC Morph Micro Appear 1+ BASO STIPPLING VBG pH VBG pCO2 VBG pO2 VBG HCO3 VBG Total CO2 VBG O2 Saturation VBG Base Excess Sodium 147 H Potassium 4.6 Chloride 96 L Carbon Dioxide 38 H Anion Gap 13.0 BUN 28 H Creatinine 0.9 Estimated GFR (MDRD) 84 L Glucose 131 H Calcium 9.2 Total Bilirubin 1.0 AST 17 ALT 24 Alkaline Phosphatase 80 Ammonia 46.4 H Troponin I Total Protein 7.1 Albumin 3.2 Globulin 3.9 Albumin/Globulin Ratio 0.8 L Lipase 21 L Urine Color Urine Clarity Urine pH Ur Specific [place] Urine Protein Urine Glucose (UA) Urine Ketones Urine Occult Blood Urine Nitrite Urine Bilirubin Urine Urobilinogen Ur Leukocyte Esterase Urine RBC Urine WBC Ur Squamous Epith Cells Urine Bacteria Urine Mucus Ur Microscopic Review Urine Culture Comments Urine Opiates Screen Ur Oxycodone Screen Urine Methadone Screen Ur Propoxyphene Screen Ur Barbiturates Screen Ur Tricyclics Screen Ur Phencyclidine Scrn Ur Amphetamine Screen U Methamphetamines Scrn U Benzodiazepines Scrn Urine Cocaine Screen U Cannabinoids Screen 02/14/19 02/14/19 02/14/19 18:54 18:54 20:34 WBC RBC Hgb Hct MCV MCH MCHC RDW Plt Count MPV Neut # (Auto) Lymph # (Auto) [place] # (Auto) Eos # (Auto) Baso # (Auto) Absolute Nucleated RBC Total Counted Band Neuts % (Manual) Abnorm Lymph % (Manual) Nucleated RBC % Neutrophils # (Manual) Lymphocytes # (Manual) Monocytes # (Manual) Eosinophils # (Manual) Basophils # (Manual) Differential Comment Manual Slide Review Platelet Estimate Platelet Morphology RBC Morph Micro Appear VBG pH 7.339 VBG pCO2 72.5 H VBG pO2 58.3 H VBG HCO3 38.1 H VBG Total CO2 40.4 H VBG O2 Saturation 92.8 H VBG Base Excess 9.8 H Sodium Potassium Chloride Carbon Dioxide Anion Gap BUN Creatinine Estimated GFR (MDRD) Glucose Calcium Total Bilirubin AST ALT Alkaline Phosphatase Ammonia Troponin I < 0.04 Total Protein Albumin Globulin Albumin/Globulin Ratio Lipase Urine Color DARK YELLOW Urine Clarity CLEAR Urine pH 5.5 Ur Specific [place] >=1.030 H Urine Protein 100 H Urine Glucose (UA) NEGATIVE Urine Ketones TRACE Urine Occult Blood TRACE-INTA Urine Nitrite NEGATIVE Urine Bilirubin MODERATE H Urine Urobilinogen 1 (NORMAL) Ur Leukocyte Esterase NEGATIVE Urine RBC 0-5 Urine WBC 0-3 Ur Squamous Epith Cells NONE SEEN Urine Bacteria None Seen Urine Mucus Few Strands Ur Microscopic Review INDICATED Urine Culture Comments NOT INDICATED Urine Opiates Screen NEGATIVE Ur Oxycodone Screen POSITIVE H Urine Methadone Screen NEGATIVE Ur Propoxyphene Screen NEGATIVE Ur Barbiturates Screen NEGATIVE Ur Tricyclics Screen NEGATIVE Ur Phencyclidine Scrn NEGATIVE Ur Amphetamine Screen NEGATIVE U Methamphetamines Scrn NEGATIVE U Benzodiazepines Scrn POSITIVE H Urine Cocaine Screen NEGATIVE U Cannabinoids Screen NEGATIVE PD MEDICAL DECISION MAKING - ED course Complexity details: reviewed old records, reviewed results, re-evaluated patient, considered differential, d/w patient, d/w family ED course: 68-year-old male with transient altered mental status today. Likely from CO2 retention after removing his oxygen for a period of time. Possible hypoxia contributed this as well. Patient is well-appearing, nontoxic. Afebrile. No focal neurological deficits. NIH stroke scale of 0. Patient is at his normal mental baseline. We will have him follow-up with his doctor for further care. Lungs are clear to auscultation bilaterally except for mild wheezing after breathing treatments. No evidence of pneumonia clinically. Patient and family counseled regarding signs and symptoms for which I believe and urgent re- evaluation would be necessary. Patient with good understanding of and agreement to plan and is comfortable going home at this time This document was made in part using voice recognition software. While efforts are made to proofread this document, sound alike and grammatical errors may occur. Departure - Departure Disposition: 01 Home, Self Care Clinical Impression: Altered mental status, Hyperammonemia COPD (chronic obstructive pulmonary disease) Qualifiers: COPD type: unspecified COPD Qualified Code(s): J44.9 - Chronic obstructive pulmonary disease, unspecified Condition: Good Instructions: COPD Dc Follow-Up: Cristian Higginbotham MD [Primary Care Provider] - Within 1 week Comments: Please keep the oxygen on at home. Return if you worsen. Continue your current medications. Discharge Date/Time: 02/14/19 20:53
[2019-02-14 19:06] LABS: BASOPHILS % (AUTO) 0.2 %; HGB - HEMOGLOBIN 11.3 g/dL (14.0-18.0); LYMPHOCYTES % (AUTO) 3.9 %; MEAN CORPUSCULAR HEMOGLOBIN 31.1 pg (27.0-31.0); MEAN CORPUSCULAR HGB CONC 29.4 g/dL (32.0-36.0); MEAN CORPUSCULAR VOLUME 106.1 fL (80.0-94.0); MEAN PLATELET VOLUME 10.6 fL (7.4-11.4); MONOCYTES % (AUTO) 12.2 %; NEUTROPHILS % (AUTO) 82.4 %; PLT - PLATELET COUNT 185 10^3/uL (130-450); RED BLOOD COUNT 3.63 10^6/uL (4.70-6.10); RED CELL DISTRIBUTION WIDTH 12.8 % (12.0-15.0); WHITE BLOOD COUNT 9.4 x10^3/uL (4.8-10.8)
[2019-02-14 19:08] LABS: VBG PCO2 72.5 mmHg (41-51); VBG PH 7.339 (7.31-7.41); VBG PO2 58.3 mmHg (25-47)
[2019-02-14 19:09] LABS: VBG BASE EXCESS 9.8 mmol/L (-2 - +2); VBG TOTAL CO2 40.4 mmol/L (24-29)
[2019-02-14 19:17] LABS: ALBUMIN 3.2 g/dL (3.2-5.5); ALBUMIN/GLOBULIN RATIO 0.8 (1.0-2.2); CALCIUM 9.2 mg/dL (8.5-10.3); CREATININE 0.9 mg/dL (0.6-1.2); TOTAL PROTEIN 7.1 g/dL (6.7-8.2)
[2019-02-14 19:22] LABS: ABNORMAL LYMPHS % (MANUAL) 0 %
[2019-02-14 19:29] VITALS: BP 127/77
[2019-02-14 19:38] LABS: BAND NEUTROPHILS % (MANUAL) 1 %; LYMPHOCYTES # (MANUAL) 0.4 10^3/uL (1.5-3.5); LYMPHOCYTES % (MANUAL) 4 %; MONOCYTES # (MANUAL) 0.6 10^3/uL (0.0-1.0); NEUTROPHILS # (MANUAL) 8.5 10^3/uL (1.5-6.6); NEUTROPHILS % (MANUAL) 89 %
[2019-02-14 19:41] LABS: DIFFERENTIAL COMMENT MANUAL DIFFERENTIAL; PLATELET ESTIMATE, MANUAL NORMAL (130-450,000) (NORMAL); PLATELET MORPHOLOGY NORMAL APPEARANCE (NORMAL)
[2019-02-14] MEDS ORDERED: IPRATROPIUM/ALBUTEROL 3 ML NEB INH STA (19:46)
[2019-02-14 20:41] LABS: MUDS CUTOFF CONCENTRATIONS CUTOFF CONC BELOW:
[2019-02-14 20:46] LABS: GLUCOSE, URINE (UA) NEGATIVE (NEGATIVE); KETONES,URINE (UA) TRACE mg/dL (NEGATIVE); LEUKOCYTE ESTERASE, URINE NEGATIVE (NEGATIVE); NITRITE,URINE NEGATIVE (NEGATIVE); OCCULT BLOOD,URINE TRACE-INTA (NEGATIVE); PH,URINE 5.5 PH (5.0-7.5); PROTEIN,URINE 100 mg/dL (NEGATIVE); UROBILINOGEN,URINE 1 (NORMAL) E.U./dL (NORMAL)
[2019-02-14 20:57] LABS: BILIRUBIN,URINE MODERATE (NEGATIVE); CLARITY,URINE CLEAR (CLEAR); ICTOTEST,URINE POSITIVE
[2019-02-14 20:59] LABS: BACTERIA,URINE None Seen /HPF (None Seen); MUCUS,URINE Few Strands; RBC,URINE 0-5 /HPF (0-5); SQUAMOUS EPITHELIAL CELL,UR NONE SEEN (<= Few)
[2019-02-14 21:04] LABS: AMPHETAMINE SCREEN,URINE NEGATIVE (NEGATIVE); BENZODIAZEPINES SCREEN, URINE POSITIVE (NEGATIVE); COCAINE SCREEN URINE NEGATIVE (NEGATIVE); METHADONE SCREEN, URINE NEGATIVE (NEGATIVE); METHAMPHETAMINES SCREEN, URINE NEGATIVE (NEGATIVE); OPIATE SCREEN, URINE NEGATIVE (NEGATIVE); TRICYCLIC ANTIDEPRESSANT,URINE NEGATIVE (NEGATIVE)
[2019-02-14 21:05] LABS: OXYCODONE SCREEN, URINE POSITIVE (NEGATIVE); PROPOXYPHENE SCREEN, URINE NEGATIVE (NEGATIVE)
== END 2019-02-14 20:53 | disposition home or self-care (01) ==
LOC: EDUNIT# → ED 18:13
DX: R41.82 Altered mental status, unspecified (principal); E72.20 Disorder of urea cycle metabolism, unspecified; J44.9 Chronic obstructive pulmonary disease, unspecified; I10 Essential (primary) hypertension; Z87.891 Personal history of nicotine dependence
CPT/HCPCS: 36415; 80053; 80306; 81001; 81003; 82140; 82803; 83690; 84484; 85025; 87086; 94640; 99283; 99284

== ENCOUNTER 2019-02-15 18:09 | Inpatient (IN) | payer MEDICARE ==
--- NOTE | 2019-02-15 18:36 | ED Physician Documentation ---
History of Present Illness - Stated complaint Stated Complaint: SOA/CONFUSION - Chief complaint Chief Complaint: Resp - History obtained from History obtained from: Patient, Family - History of Present Illness Timing: Today Pain level max: 0 Pain level now: 0 Improved by: oxygen Worsened by: taking off oxygen - Additonal information Additional information: 68-year-old male presents to the emergency department feeling increased short of breath and confusion today. Family states that he took his oxygen off last night while he was asleep. Pulse ox decreased. Seemed more confused again today. They brought his portable oxygenator with him, O2 sat was reportedly 60 at triage. Review of Systems Ten Systems: 10 systems reviewed and negative Constitutional: denies: Fever, Chills Nose: denies: Rhinorrhea / runny nose, Congestion Throat: denies: Sore throat GI: denies: Nausea, Vomiting, Diarrhea Skin: denies: Rash Musculoskeletal: denies: Neck pain, Back pain Neurologic: denies: Headache PD PAST MEDICAL HISTORY - Past Medical History Cardiovascular: Hypertension, Arrhythmia, Other Respiratory: COPD, Emphysema, Other Endocrine/Autoimmune: None GI: None : None HEENT: None Psych: None Musculoskeletal: Chronic back pain Derm: None - Past Surgical History Past Surgical History: Yes General: Appendectomy, Bowel surgery, Colonoscopy Ortho: Hip replacement Cardiovascular: Lobectomy - Present Medications Home Medications: Ambulatory Orders Medication Instructions Recorded Confirmed Diazepam [Valium] 2 tab PO QID PRN MDD Two 5mg tabs 02/16/13 05/04/17 up to q.i.d. Labetalol [Trandate] 200 mg PO TID 02/27/13 05/04/17 Gabapentin [Neurontin] 900 mg PO TID 05/16/16 05/04/17 Oxycodone HCl 20 mg PO TID MDD six 10mg tabs 05/16/16 05/04/17 amLODIPine [Norvasc] 2.5 mg PO DAILY 05/16/16 05/04/17 Sennosides/Docusate Sodium 2 tab PO MDD up to BID 05/17/16 05/17/16 [Senna-S Tablet] Acetaminophen [Tylenol] 650 mg PO BID 02/25/17 05/04/17 Meloxicam 7.5 mg PO BID 02/25/17 05/04/17 Multivitamin [Multiple Vitamins] 1 tab PO DAILY 02/25/17 05/04/17 Venlafaxine HCl 100 mg PO DAILY 02/25/17 05/04/17 - Allergies Allergies/Adverse Reactions: Allergies Allergy/AdvReac Type Severity Reaction Status Date / Time methadone [From Dolophine] Allergy Unknown Verified 02/15/19 07:49 Penicillins Allergy Rash Verified 02/14/19 18:22 - Social History Does the pt smoke?: No Smoking Status: Former smoker Does the pt drink ETOH?: No Does the pt have substance abuse?: No - Immunizations Immunizations are current?: Yes - POLST Patient has POLST: Yes PD ED PE NORMAL - Vitals Vital signs reviewed: Yes - General General: Alert and oriented X 3, No acute distress - HEENT HEENT: Moist mucous membranes - Neck Neck: Supple, no meningeal sign - Cardiac Cardiac: RRR, Strong equal pulses - Respiratory Respiratory: No respiratory distress, Other (wheezing B) - Abdomen Abdomen: Soft, Non tender, Non distended - Derm Derm: Warm and dry - Neuro Neuro: Alert and oriented X 3 - Psych Psych: Normal mood, Normal affect Results - Vitals Vitals: Vital Signs - 24 hr 02/15/19 02/15/19 02/15/19 18:16 18:48 20:14 Temperature 36.9 C Heart Rate 101 H 87 88 Respiratory 26 H 14 19 Rate Blood Pressure 133/84 H 116/68 O2 Saturation 59 L 92 Oxygen O2 Source Nasal cannula Oxygen Flow Rate 4 - EKG (time done) 1833 Rate: Rate (enter#) (88) Rhythm: NSR [place]: Normal Intervals: Normal IA QRS: LVH Ischemia: Other (LVH with repol) - Labs Labs: Laboratory Tests 02/15/19 02/15/19 02/15/19 18:40 18:40 18:40 WBC 7.7 RBC 3.65 L Hgb 11.3 L Hct 39.4 L MCV 107.9 H MCH 31.0 MCHC 28.7 L RDW 13.0 Plt Count 206 MPV 10.7 Neut # (Auto) Not Reportable Lymph # (Auto) Not Reportable [place] # (Auto) Not Reportable Eos # (Auto) Not Reportable Baso # (Auto) Not Reportable Absolute Nucleated RBC Not Reportable Total Counted 100 Band Neuts % (Manual) 4 Abnorm Lymph % (Manual) 0 Nucleated RBC % Not Reportable Neutrophils # (Manual) 5.6 Lymphocytes # (Manual) 0.4 L Monocytes # (Manual) 1.6 H Eosinophils # (Manual) 0.1 Basophils # (Manual) 0.0 Differential Comment MANUAL DIFFERENTIAL Manual Slide Review Indicated Platelet Estimate NORMAL (130-450,000) Platelet Morphology NORMAL APPEARANCE RBC Morph Micro Appear 1+ STOMATOCYTES Sodium 146 H Potassium 4.6 Chloride 93 L Carbon Dioxide 40 H* Anion Gap 13.0 BUN 35 H Creatinine 0.9 Estimated GFR (MDRD) 84 L Glucose 157 H Calcium 9.3 Total Bilirubin 1.0 AST 27 ALT 32 Alkaline Phosphatase 86 B-Natriuretic Peptide 548 H Total Protein 7.4 Albumin 3.3 Globulin 4.1 Albumin/Globulin Ratio 0.8 L Lipase 23 - Rads (name of study) cxr Radiology: Prelim report reviewed, EMP read contemporaneously, See rad report (Large heart with diffuse haziness concerning for pulmonary edema. . Chronic postoperative changes on the left. ) PD MEDICAL DECISION MAKING - ED course Complexity details: reviewed old records, reviewed results, re-evaluated patient, considered differential, d/w patient, d/w family, d/w storage consultant ED course: Patient was placed on oxygen here and O2 sat improved. He is normally on 3 to 4 L at home. He is maintained on 4 L here. Has significant increase in pulmonary edema from recent chest x-ray. Given Lasix. Given steroids and DuoNeb. Breathing easier. Unclear if his oxygen tanks and concentrators are working correctly at home? In any case will need to be placed into the hospital for further evaluation and care. Discussed the case with Dr. Morgan, hospitalist who accepts. This document was made in part using voice recognition software. While efforts are made to proofread this document, sound alike and grammatical errors may occur. Departure - Departure Disposition: 66 [facility] DC/Xfer Clinical Impression: Hypoxia, Asthma exacerbation in COPD Pulmonary edema Qualifiers: Chronicity: acute Qualified Code(s): J81.0 - Acute pulmonary edema Condition: Stable Discharge Date/Time: 02/15/19 21:15
[2019-02-15] MEDS ORDERED: IPRATROPIUM/ALBUTEROL 3 ML NEB INH STA (18:43)
[2019-02-15 18:46] LABS: BASOPHILS % (AUTO) 0.1 %; EOSINOPHILS % (AUTO) 0.1 %; HGB - HEMOGLOBIN 11.3 g/dL (14.0-18.0); LYMPHOCYTES % (AUTO) 6.4 %; MEAN CORPUSCULAR HGB CONC 28.7 g/dL (32.0-36.0); MEAN CORPUSCULAR VOLUME 107.9 fL (80.0-94.0); MEAN PLATELET VOLUME 10.7 fL (7.4-11.4); MONOCYTES % (AUTO) 17.2 %; NEUTROPHILS % (AUTO) 75.4 %; PLT - PLATELET COUNT 206 10^3/uL (130-450); RED BLOOD COUNT 3.65 10^6/uL (4.70-6.10); WHITE BLOOD COUNT 7.7 x10^3/uL (4.8-10.8)
[2019-02-15 18:53] LABS: ABNORMAL LYMPHS % (MANUAL) 0 %
[2019-02-15 19:19] LABS: ALBUMIN 3.3 g/dL (3.2-5.5); ALBUMIN/GLOBULIN RATIO 0.8 (1.0-2.2); CALCIUM 9.3 mg/dL (8.5-10.3); CREATININE 0.9 mg/dL (0.6-1.2); TOTAL PROTEIN 7.4 g/dL (6.7-8.2)
--- NOTE | 2019-02-15 19:38 | XRAY Report ---
Reason: chest pain Procedure Date: 02/15/2019 Accession Number: [id number] / [id number] Procedure: XR - Chest 1 View X-Ray CPT Code: 57296 FULL RESULT: EXAM: CHEST RADIOGRAPHY EXAM DATE: 02/15/2019 07:13 PM. CLINICAL HISTORY: Chest pain. Shortness of breath. Confusion. COMPARISON: CHEST 2 VIEW 02/13/2019 10:04 AM. TECHNIQUE: 1 view. FINDINGS: Lungs/Pleura: Left hilar clips with chronic volume loss and elevation of the hemidiaphragm on the left. Diffuse lung haziness. No pleural effusion. No pneumothorax. Mediastinum: Large heart. Other: None. IMPRESSION: 1. Large heart with diffuse haziness concerning for pulmonary edema. 2. Chronic postoperative changes on the left. RADIA
[2019-02-15 19:59] LABS: BAND NEUTROPHILS % (MANUAL) 4 %; EOSINOPHILS # (MANUAL) 0.1 10^3/uL (0-0.7); LYMPHOCYTES # (MANUAL) 0.4 10^3/uL (1.5-3.5); LYMPHOCYTES % (MANUAL) 5 %; MONOCYTES # (MANUAL) 1.6 10^3/uL (0.0-1.0)
[2019-02-15 20:01] LABS: DIFFERENTIAL COMMENT MANUAL DIFFERENTIAL; PLATELET ESTIMATE, MANUAL NORMAL (130-450,000) (NORMAL); PLATELET MORPHOLOGY NORMAL APPEARANCE (NORMAL)
[2019-02-15] MEDS ORDERED: methylPREDNISolone SUCCINATE 125 MG/2 ML VIAL IVP STA (20:06)
[2019-02-15] MEDS ORDERED: FUROSEMIDE 40 MG/4 ML VIAL IVP STA (20:06)
[2019-02-15] MEDS ORDERED: IPRATROPIUM/ALBUTEROL 3 ML NEB INH PRN (20:26)
[2019-02-15] MEDS ORDERED: HEPARIN 5,000 UNIT/ML VIAL SUBQ SCH (21:00)
[2019-02-15] MEDS: FUROSEMIDE 20 MG/2 ML VIAL IVP SCH (22:17)
--- NOTE | 2019-02-15 23:37 | HISTORY & PHYSICAL EXAMINATION ---
Chief Complaint - Chief Complaint Chief Complaint: dyspnea History of Present Illness - Admitted From Admitted From:: [facility] ED - History Obtained From Records Reviewed: yes History obtained from: patient and family - History of Present Illness HPI Comment/Other: Patient seen on 02/15/19 at 22:00pm Patient is a 68 y/o male with a significant medical history who was brought to the ED by family because he was dyspneic, coughing and seemed confused. He seemed to trail off mid-sentence and seemed incoherent. Upon presentation to the ED he was 89% on 3L of oxygen via Nasal [place]. He was seen in the ED yesterday for dyspnea but recovered after treatment and was discharged home. He was wheezing today as well. He denied chest pain, abd pain, nausea, vomiting, fever or chills. In the ED, CXR showed pulmonary edema. He also had a BNP of 548. As a result he is being admitted for further treatment. 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 Then also seen in [facility] in [place] and has a vascular surgeon there) Respiratory: reports: COPD, Emphysema, Other Neuro: reports: None, Other (Spinal stenosis) Endocrine/Autoimmune: reports: None GI: reports: GERD : reports: None HEENT: reports: None Psych: reports: Depression, Anxiety Musculoskeletal: reports: Osteoarthritis, Chronic back pain Derm: reports: None MRSA Hx?: No Other Past Medical History: Stage IV lung cancer, non-small cell s/p left upper lobe lobectomy and chemotherapy and radiation,Adenocarcinoma of the prostate, s/p radical retropubic prostatectomy - Past Surgical History General: reports: Appendectomy, Bowel surgery, Colonoscopy Ortho: reports: Hip replacement Cardiovascular: reports: Lobectomy - Family & Social History Family History: Mother: (mother: 80, father: 64), Father: , Cancer (father and brother: prostate cancer), Sister: Diabetes, Type 2, Brother: Cancer, Diabetes, Type 2 Living arrangement: At home Living Situation: With family Social History Notes: Smoked for about 46 yrs. Quit in 2014. Seldom drinks, No illicit drug use. His brother lives with him. - POLST Patient has POLST: Yes Meds/Allgy - Home Medications Home Medications: Ambulatory Orders Medication Instructions Recorded Confirmed Diazepam [Valium] 2 tab PO QID PRN MDD Two 5mg tabs 02/16/13 05/04/17 up to q.i.d. Labetalol [Trandate] 200 mg PO TID 02/27/13 05/04/17 Gabapentin [Neurontin] 900 mg PO TID 05/16/16 05/04/17 Oxycodone HCl 20 mg PO TID MDD six 10mg tabs 05/16/16 05/04/17 amLODIPine [Norvasc] 2.5 mg PO DAILY 05/16/16 05/04/17 Sennosides/Docusate Sodium 2 tab PO MDD up to BID 05/17/16 05/17/16 [Senna-S Tablet] Acetaminophen [Tylenol] 650 mg PO BID 02/25/17 05/04/17 Meloxicam 7.5 mg PO BID 02/25/17 05/04/17 Multivitamin [Multiple Vitamins] 1 tab PO DAILY 02/25/17 05/04/17 Venlafaxine HCl 100 mg PO DAILY 02/25/17 05/04/17 - Allergies Allergies/Adverse Reactions: Allergies Allergy/AdvReac Type Severity Reaction Status Date / Time methadone [From Dolophine] Allergy Unknown Verified 02/15/19 07:49 Penicillins Allergy Rash Verified 02/14/19 18:22 Review of Systems - Constitutional Constitutional: denies: Fatigue, Fever - Eyes Eyes: denies: Vision loss, Dipolpia - Ears, Nose & Throat Ears, Nose & Throat: denies: Tinnitus, Vertigo, Sore throat, Hoarseness - Cardiovascular Cariovascular: denies: Chest pain, Edema, Lightheadedness, Syncope - Respiratory Respiratory: reports: Cough, Wheezing, SOB at rest - Gastrointestinal Gastrointestinal: reports: Reflux/heartburn. denies: Abdominal pain, Abdominal distention, Constipation, Diarrhea, Nausea, Vomiting - Genitourinary Genitourinary: denies: Dysuria, Frequency, Urgency, Hematuria - Musculoskeletal Musculoskeletal: reports: Back pain - Integumentary Integumentary: reports: Rash (left leg slight erythemtous) - Neurological Neurological: denies: General weakness, Focal weakness, Headache, Dizziness - Psychiatric Psychiatric: reports: Depression, Anxiety - Endocrine Endocrine: denies: Polyuria, Polydypsia - Hematologic/Lymphatic Hematologic/Lymphatic: denies: Anemia, Bruising Prior Level of Functionality: Independent of activities of daily living Exam - Vital Signs Vital Signs: Vital Signs x48h Temp Pulse Pulse Resp BP BP Pulse Ox 02/15/19 21:25 37.0 C 87 16 152/90 H 94 02/15/19 20:14 88 19 116/68 92 02/15/19 18:48 87 14 02/15/19 18:16 36.9 C 101 H 26 H 133/84 H 59 L - Physical Exam General Appearance: positive: No acute distress, Alert Eyes Bilateral: positive: Normal inspection, PERRL, EOMI ENT: positive: ENT inspection nml Neck: positive: Nml inspection, No JVD, Trachea midline Respiratory: positive: Chest non-tender, Wheezes Cardiovascular: positive: Regular rate & rhythm, No murmur Abdomen: positive: Non-tender, No distention. negative: Guarding, Rebound Back: positive: Nml inspection Skin: positive: Other (left leg mildly erythematous) Extremities: positive: Non-tender, Full ROM, No pedal edema Neurologic/Psychiatric: positive: Oriented x3, CN's nml (2-12), Motor nml Conclusion/Plan - Problem List (1) Pulmonary edema Conclusion/Plan: Suspect 2/2 to CHF vs valvular disease Complete 2D echo ordered Trend tropX2 more Lasix 20mg IV bid ordered. 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 At the time he did not want to be a surgical candidate. He has since been seeing a vascular surgeon at [facility] in [place] (7) Chronic back pain Conclusion/Plan: On oxycodone and gabapentin - Lab Results Fish Bones: 02/16/19 04:25 02/16/19 04:25 Core Measures - Anticipated LOS I expect patient to be DC'd or transferred within 96 hours.: Yes - DVT/VTE - Prophylaxis VTE/DVT Device ordered at admit?: Yes
[2019-02-16] MEDS: SODIUM CHLORIDE FLUSH 0.9% 10 ML SYRINGE IVP SCH ×4 (01:46→19:59)
[2019-02-16 05:09] LABS: BASOPHILS % (AUTO) 0.1 %; HGB - HEMOGLOBIN 10.9 g/dL (14.0-18.0); LYMPHOCYTES # (AUTO) 0.2 10^3/uL (1.5-3.5); LYMPHOCYTES % (AUTO) 3.5 %; MEAN CORPUSCULAR HEMOGLOBIN 30.3 pg (27.0-31.0); MEAN CORPUSCULAR HGB CONC 28.3 g/dL (32.0-36.0); MEAN CORPUSCULAR VOLUME 106.9 fL (80.0-94.0); MEAN PLATELET VOLUME 11.4 fL (7.4-11.4); MONOCYTES # (AUTO) 0.4 10^3/uL (0.0-1.0); NEUTROPHILS # (AUTO) 6.1 10^3/uL (1.5-6.6); PLT - PLATELET COUNT 215 10^3/uL (130-450); RED CELL DISTRIBUTION WIDTH 12.9 % (12.0-15.0); WHITE BLOOD COUNT 6.8 x10^3/uL (4.8-10.8)
[2019-02-16 05:32] LABS: CALCIUM 9.3 mg/dL (8.5-10.3)
[2019-02-16 05:46] LABS: PLATELET ESTIMATE, MANUAL NORMAL (130-450,000) (NORMAL)
[2019-02-16 06:13] LABS: ABG PH 7.43 (7.35-7.45)
[2019-02-16 06:14] LABS: ABG HCO3 53.4 mmol/L (22.0-26.0); ABG PCO2 80 mmHg (34-45); ABG PO2 73 mmHg (80-100); ABG TCO2 > 50.0 MMOL/L (21.0-29.0)
[2019-02-16 06:15] LABS: ABG OXYGEN SATURATION 94 % (94-98); ALLEN TEST POSITIVE
[2019-02-16] MEDS: POLYETHYLENE GLYCOL 3350 17 GM PACKET PO SCH (09:29)
[2019-02-16] MEDS: FUROSEMIDE 20 MG/2 ML VIAL IVP SCH (09:29)
[2019-02-16 10:34] LABS: ABG HCO3 50.2 mmol/L (22.0-26.0); ABG PCO2 67 mmHg (34-45); ABG PH 7.49 (7.35-7.45); ABG PO2 70 mmHg (80-100)
[2019-02-16 10:35] LABS: ABG OXYGEN SATURATION 94 % (94-98); ABG TCO2 > 50.0 MMOL/L (21.0-29.0)
[2019-02-16 10:36] LABS: ALLEN TEST POSITIVE
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
[2019-02-16] MEDS ORDERED: IPRATROPIUM/ALBUTEROL 3 ML NEB INH PRN (18:00)
[2019-02-16] MEDS: oxyCODONE 5 MG TABLET PO SCH ×2 (18:09→21:44)
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
[2019-02-16] MEDS ORDERED: FUROSEMIDE 20 MG/2 ML VIAL IVP STA (19:24)
[2019-02-16] MEDS: CHLORHEXIDINE GLUCONATE 15 ML UDC PO SCH (20:29)
[2019-02-16] MEDS: GABAPENTIN 300 MG CAPSULE PO SCH (20:30)
[2019-02-16] MEDS: diazePAM 5 MG TABLET PO SCH (20:32)
[2019-02-16] MEDS: LABETALOL 100 MG TABLET PO SCH (21:44)
[2019-02-16] MEDS: ACETAMINOPHEN 325 MG TABLET PO SCH (21:44)
[2019-02-16] MEDS ORDERED: MORPHINE 2 MG/ML CARPUJECT IVP PRN (22:23)
[2019-02-17 05:19] LABS: ABG PH 7.39 (7.35-7.45)
[2019-02-17 05:20] LABS: ABG HCO3 43.4 mmol/L (22.0-26.0); ABG OXYGEN SATURATION 93 % (94-98); ABG PO2 67 mmHg (80-100)
[2019-02-17 05:22] LABS: ABG PCO2 74 mmHg (34-45); ABG TCO2 45.7 MMOL/L (21.0-29.0); ALLEN TEST POSITIVE
[2019-02-17 05:36] LABS: BASOPHILS % (AUTO) 0.1 %; EOSINOPHILS % (AUTO) 0.1 %; HGB - HEMOGLOBIN 11.5 g/dL (14.0-18.0); LYMPHOCYTES # (AUTO) 0.5 10^3/uL (1.5-3.5); LYMPHOCYTES % (AUTO) 7.2 %; MEAN CORPUSCULAR HEMOGLOBIN 30.6 pg (27.0-31.0); MEAN CORPUSCULAR HGB CONC 29.9 g/dL (32.0-36.0); MEAN CORPUSCULAR VOLUME 102.1 fL (80.0-94.0); MEAN PLATELET VOLUME 10.5 fL (7.4-11.4); MONOCYTES # (AUTO) 1.3 10^3/uL (0.0-1.0); MONOCYTES % (AUTO) 17.7 %; NEUTROPHILS # (AUTO) 5.5 10^3/uL (1.5-6.6); NEUTROPHILS % (AUTO) 74.5 %; PLT - PLATELET COUNT 258 10^3/uL (130-450); RED BLOOD COUNT 3.76 10^6/uL (4.70-6.10); RED CELL DISTRIBUTION WIDTH 13.2 % (12.0-15.0); WHITE BLOOD COUNT 7.4 x10^3/uL (4.8-10.8)
[2019-02-17] MEDS: ACETAMINOPHEN 325 MG TABLET PO SCH ×3 (05:53→21:18)
[2019-02-17] MEDS: LABETALOL 100 MG TABLET PO SCH ×3 (05:54→21:19)
[2019-02-17] MEDS: SODIUM CHLORIDE FLUSH 0.9% 10 ML SYRINGE IVP PRN (05:54)
[2019-02-17] MEDS: oxyCODONE 5 MG TABLET PO SCH ×3 (05:54→21:19)
[2019-02-17] MEDS: FUROSEMIDE 20 MG/2 ML VIAL IVP SCH ×2 (05:54→14:05)
[2019-02-17 05:59] LABS: CALCIUM 9.3 mg/dL (8.5-10.3); CREATININE 0.8 mg/dL (0.6-1.2)
[2019-02-17] MEDS: GABAPENTIN 300 MG CAPSULE PO SCH ×3 (08:24→20:26)
[2019-02-17] MEDS: diazePAM 5 MG TABLET PO SCH ×3 (08:25→20:26)
[2019-02-17] MEDS: amLODIPine 5 MG TABLET PO SCH (08:25)
[2019-02-17] MEDS: POLYETHYLENE GLYCOL 3350 17 GM PACKET PO SCH (08:32)
[2019-02-17] MEDS: CHLORHEXIDINE GLUCONATE 15 ML UDC PO SCH ×2 (09:34→20:26)
[2019-02-17] MEDS: SODIUM CHLORIDE FLUSH 0.9% 10 ML SYRINGE IVP SCH ×3 (09:34→21:19)
--- NOTE | 2019-02-17 15:58 | PROVIDER PROGRESS NOTE ---
Assessment/Plan - Problem List (1) COPD exacerbation Assessment/Plan: There is no audible wheezing however he has a prolonged expiratory phase. His saturations are still requiring oxygen by Oxymizer, it is down to 3 L supplemental this afternoon, which is his home setting. Continue with nebulizers, steroids, supplemental oxygen. Will order PT to start working with him today. Possibly out of the ICU tomorrow, if no further BIPAP is needed today. (2) Acute diastolic CHF (congestive heart failure), NYHA class 4 Assessment/Plan: LVEF is preserved on Echo however the LV is dilated and there is grade 2 diastolic dysfunction which probably caused the pulmonary edema. He is ruled out for an [place] as the cause of the pulmonary edema. He is not a candidate for coronary angiography because of his COPD and dissecting thoracoabdominal aortic aneurysm. We will plan on adjusting medications after adequate diuresis. Continue with IV diuretics twice daily, follow I's and O's, daily weights and his clinical pulmonary status. (3) Pulmonary edema cardiac cause Assessment/Plan: As above in #2 (4) Confusion Assessment/Plan: This is felt to have been from CO2 narcosis and from hypoxemia. He is still very sleepy today and BMP shows CO2 retention. 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 (7) Depression Assessment/Plan: Stable, his prehospital medications were resumed yesterday - Current Meds Current Meds: Current Medications Generic Name Dose Route Start Last Admin Trade Name Volodymyr PRN Reason Stop Dose Admin Acetaminophen 650 mg 02/16/19 22:00 02/17/19 13:59 Tylenol PO 650 mg TID ROMEO Administration Amlodipine Besylate 2.5 mg 02/17/19 09:00 02/17/19 08:25 Norvasc PO 2.5 mg DAILY ROMEO Administration Chlorhexidine Gluconate 15 ml 02/16/19 21:00 02/17/19 09:34 Peridex PO 15 ml BID ROMEO Administration Diazepam 5 mg 02/17/19 08:00 02/17/19 08:25 Valium PO 5 mg 0800,1600 ROMEO Administration Diazepam 10 mg 02/16/19 21:00 02/16/19 20:32 Valium PO 10 mg QPM ROMEO Administration Furosemide 20 mg 02/17/19 06:00 02/17/19 14:05 Lasix Inj 20mg Vial IVP 20 mg BIDDIURETIC ROMEO Administration Gabapentin 1,200 mg 02/16/19 21:00 02/16/19 20:30 Neurontin PO 1,200 mg QPM ROMEO Administration Gabapentin 900 mg 02/17/19 08:00 02/17/19 08:24 Neurontin PO 900 mg 0800,1600 ROMEO Administration Labetalol HCl 200 mg 02/16/19 22:00 02/17/19 14:00 Trandate PO 200 mg TID ROMEO Administration Oxycodone HCl 20 mg 02/16/19 18:00 02/17/19 14:00 Roxicodone PO 20 mg TID ROMEO Administration Polyethylene Glycol 17 gm 02/16/19 09:00 02/17/19 08:32 Miralax PO 17 gm DAILY ROMEO Administration Sodium Chloride 10 ml 02/15/19 20:18 02/17/19 05:54 Normal Saline Flush 0.9% IVP 10 ml PRN PRN Administration NEEDED PER PROVIDER ORDERS Sodium Chloride 10 ml 02/16/19 01:00 02/17/19 09:34 Normal Saline Flush 0.9% IVP 10 ml 0100,0900,1700 ROMEO Administration - Lab Result Fish Bone Diagrams: 02/17/19 04:42 02/17/19 04:42 - Additional Planning My Orders: My Active Orders 02/16/19 18:00 oxyCODONE [Roxicodone] 20 mg PO TID 02/16/19 21:00 Gabapentin [Neurontin] 1,200 mg PO QPM diazePAM [Valium] 10 mg PO QPM 02/16/19 22:00 Acetaminophen [Tylenol] 650 mg PO TID Labetalol [Trandate] 200 mg PO TID 02/17/19 MRSA PCR,CCU ADMIT Stat Evaluate and Treat OT [OT] Routine 02/17/19 08:00 Gabapentin [Neurontin] 900 mg PO 0800,1600 diazePAM [Valium] 5 mg PO 0800,1600 02/17/19 09:00 amLODIPine [Norvasc] 2.5 mg PO DAILY 02/17/19 11:49 Miscellaenous Nursing Order [RC] QSHIFT Subjective - Subjective Patient Reports: Resting Comfortably, Fatigue, Other (Asking "what is the plan:".) Nursing Reports: Other (The family and/or patient told his nurse, Larry, that the patient was using his Indigent oxygen respirator more frequently over the past few days.) Objective Vital Signs: Vital Signs - 24 hr 02/16/19 02/16/19 02/16/19 16:00 17:00 18:00 Temperature 36.2 C L Heart Rate Heart Rate [ 102 H 98 111 H Brachial] Heart Rate [ 98 111 H Monitoring electrodes] Respiratory 19 26 H 21 Rate Blood Pressure 146/96 H 139/102 H 154/102 H [Left Brachial artery] O2 Saturation 98 97 95 02/16/19 02/16/19 02/16/19 18:55 19:32 20:00 Temperature 36.2 C L Heart Rate 113 H Heart Rate [ Brachial] Heart Rate [ 101 H 97 Monitoring electrodes] Respiratory 18 20 Rate Blood Pressure 125/93 H 140/81 H [Left Brachial artery] O2 Saturation 95 96 02/16/19 02/16/19 02/16/19 21:00 22:00 22:10 Temperature Heart Rate 87 Heart Rate [ Brachial] Heart Rate [ 109 H 94 Monitoring electrodes] Respiratory 23 15 Rate Blood Pressure 146/81 H 114/70 [Left Brachial artery] O2 Saturation 95 95 02/16/19 02/17/19 02/17/19 23:00 00:00 01:00 Temperature 36.5 C Heart Rate Heart Rate [ Brachial] Heart Rate [ 89 87 109 H Monitoring electrodes] Respiratory 19 15 22 Rate Blood Pressure 100/65 121/70 136/82 H [Left Brachial artery] O2 Saturation 94 94 94 02/17/19 02/17/19 02/17/19 01:01 02:00 03:00 Temperature Heart Rate 95 Heart Rate [ Brachial] Heart Rate [ 100 98 Monitoring electrodes] Respiratory 16 14 Rate Blood Pressure 114/81 H 120/78 [Left Brachial artery] O2 Saturation 98 100 02/17/19 02/17/19 02/17/19 04:00 05:00 06:00 Temperature 36.5 C 36.7 C Heart Rate Heart Rate [ Brachial] Heart Rate [ 103 H 105 H 108 H Monitoring electrodes] Respiratory 20 19 20 Rate Blood Pressure 135/79 H 129/79 135/72 H [Left Brachial artery] O2 Saturation 96 98 100 02/17/19 02/17/19 02/17/19 07:00 08:00 09:00 Temperature 36.3 C L Heart Rate Heart Rate [ Brachial] Heart Rate [ 83 86 89 Monitoring electrodes] Respiratory 20 20 18 Rate Blood Pressure 115/72 129/80 118/83 H [Left Brachial artery] O2 Saturation 98 97 95 02/17/19 02/17/19 12:00 12:30 Temperature 97.8 C H Heart Rate Heart Rate [ Brachial] Heart Rate [ 88 Monitoring electrodes] Respiratory 20 18 Rate Blood Pressure 129/81 H [Left Brachial artery] O2 Saturation 97 95 Oxygen O2 Source Oxymizer Oxygen Flow Rate 4 I&O (Last 24 Hrs): Intake and Output Totals x24h 02/15/19 02/16/19 02/17/19 23:59 23:59 23:59 Intake Total 270 1020 Output Total 1251 1950 925 Balance -1251 -1680 95 General: Other (Lethargic, eyes are closed as he speaks) HEENT: Mucous membr. moist/pink, Other (Wearing O2 per oximizer nasal mask) Neck: Supple Neuro: Non Focal, Other (Lethargic, forgetful) Cardiovascular: No murmurs Respiratory: No respiratory distress, Other (Diminished breath sounds at bases, prolonged expiratory phase, no wheezes or rales) Abdomen: Other Extremities: No edema - Results Results: Laboratory Results WBC 7.4 x10^3/uL (4.8-10.8) 02/17/19 04:42 RBC 3.76 10^6/uL (4.70-6.10) L 02/17/19 04:42 Hgb 11.5 g/dL (14.0-18.0) L 02/17/19 04:42 Hct 38.4 % (42.0-52.0) L 02/17/19 04:42 MCV 102.1 fL (80.0-94.0) H 02/17/19 04:42 MCH 30.6 pg (27.0-31.0) 02/17/19 04:42 MCHC 29.9 g/dL (32.0-36.0) L 02/17/19 04:42 RDW 13.2 % (12.0-15.0) 02/17/19 04:42 Plt Count 258 10^3/uL (130-450) 02/17/19 04:42 MPV 10.5 fL (7.4-11.4) 02/17/19 04:42 Neut # (Auto) 5.5 10^3/uL (1.5-6.6) 02/17/19 04:42 Lymph # (Auto) 0.5 10^3/uL (1.5-3.5) L 02/17/19 04:42 Ada # (Auto) 1.3 10^3/uL (0.0-1.0) H 02/17/19 04:42 Eos # (Auto) 0.0 10^3/uL (0.0-0.7) 02/17/19 04:42 Baso # (Auto) 0.0 10^3/uL (0.0-0.1) 02/17/19 04:42 Absolute Nucleated RBC 0.00 x10^3/uL 02/17/19 04:42 Total Counted 100 02/15/19 18:40 Band Neuts % (Manual) 4 % (0-10) 02/15/19 18:40 Abnorm Lymph % (Manual) 0 % 02/15/19 18:40 Nucleated RBC % 0.0 /100WBC 02/17/19 04:42 Neutrophils # (Manual) 5.6 10^3/uL (1.5-6.6) 02/15/19 18:40 Lymphocytes # (Manual) 0.4 10^3/uL (1.5-3.5) L 02/15/19 18:40 Monocytes # (Manual) 1.6 10^3/uL (0.0-1.0) H 02/15/19 18:40 Eosinophils # (Manual) 0.1 10^3/uL (0-0.7) 02/15/19 18:40 Basophils # (Manual) 0.0 10^3/uL (0-0.1) 02/15/19 18:40 Differential Comment MANUAL DIFFERENTIAL 02/15/19 18:40 Manual Slide Review Indicated 02/16/19 04:25 Platelet Estimate NORMAL (130-450,000) (NORMAL) 02/16/19 04:25 Platelet Morphology NORMAL APPEARANCE (NORMAL) 02/15/19 18:40 RBC Morph Micro Appear 1+ ANISOCYTOSIS (NORMAL) 1+ HYPOCHROMASIA (NORMAL) 1+ STOMATOCYTES (NORMAL) 02/15/19 18:40 RBC Morph Micro Appear 1+ ANISOCYTOSIS (NORMAL) 1+ HYPOCHROMASIA (NORMAL) 1+ STOMATOCYTES (NORMAL) 02/15/19 18:40 RBC Morph Micro Appear 1+ MACROCYTOSIS (NORMAL) 2+ HYPOCHROMASIA (NORMAL) 02/16/19 04:25 RBC Morph Micro Appear 1+ MACROCYTOSIS (NORMAL) 2+ HYPOCHROMASIA (NORMAL) 02/16/19 04:25 Bld Gas Analysis Time 0502/17/19 05:13 Sample Site LEFT RADIAL 02/17/19 05:13 ABG pH 7.39 (7.35-7.45) 02/17/19 05:13 ABG pCO2 74 mmHg (34-45) H* 02/17/19 05:13 ABG pO2 67 mmHg (80-100) L 02/17/19 05:13 ABG HCO3 43.4 mmol/L (22.0-26.0) H 02/17/19 05:13 ABG Total CO2 45.7 MMOL/L (21.0-29.0) H* 02/17/19 05:13 ABG O2 Saturation 93 % (94-98) L 02/17/19 05:13 ABG Base Excess 15.0 mmol/L (-2.0-3.0) H 02/17/19 05:13 Zachary Test POSITIVE 02/17/19 05:13 O2 Delivery Device OXYMIZER 02/17/19 05:13 O2 Liters/Min 3.00 LPM 02/17/19 05:13 FiO2 4.00 02/16/19 05:45 Sodium 149 mmol/L (135-145) H 02/17/19 04:42 Potassium 3.6 mmol/L (3.5-5.0) 02/17/19 04:42 Chloride 90 mmol/L (101-111) L 02/17/19 04:42 Carbon Dioxide 42 mmol/L (21-32) H* 02/17/19 04:42 Anion Gap 17.0 (6-13) H 02/17/19 04:42 BUN 32 mg/dL (6-20) H 02/17/19 04:42 Creatinine 0.8 mg/dL (0.6-1.2) 02/17/19 04:42 Estimated GFR (MDRD) 96 (>89) 02/17/19 04:42 Glucose 133 mg/dL (70-100) H 02/17/19 04:42 Calcium 9.3 mg/dL (8.5-10.3) 02/17/19 04:42 Total Bilirubin 1.0 mg/dL (0.2-1.0) 02/15/19 18:40 AST 27 IU/L (10-42) 02/15/19 18:40 ALT 32 IU/L (10-60) 02/15/19 18:40 Alkaline Phosphatase 86 IU/L (42-121) 02/15/19 18:40 Troponin I < 0.04 ng/mL (<0.49) 02/16/19 08:25 B-Natriuretic Peptide 548 pg/mL (5-100) H 02/15/19 18:40 Total Protein 7.4 g/dL (6.7-8.2) 02/15/19 18:40 Albumin 3.3 g/dL (3.2-5.5) 02/15/19 18:40 Globulin 4.1 g/dL (2.1-4.2) 02/15/19 18:40 Albumin/Globulin Ratio 0.8 (1.0-2.2) L 02/15/19 18:40 Lipase 23 U/L (22-51) 02/15/19 18:40 - Procedures Procedures: Procedures INSERTION OF INFUSION DEV INTO SUP VENA CAVA, PERC APPROACH (05/16/16)
[2019-02-18 05:15] LABS: BASOPHILS % (AUTO) 0.3 %; EOSINOPHILS # (AUTO) 0.1 10^3/uL (0.0-0.7); EOSINOPHILS % (AUTO) 1.3 %; HGB - HEMOGLOBIN 11.5 g/dL (14.0-18.0); LYMPHOCYTES # (AUTO) 0.7 10^3/uL (1.5-3.5); LYMPHOCYTES % (AUTO) 9.6 %; MEAN CORPUSCULAR HEMOGLOBIN 30.5 pg (27.0-31.0); MEAN PLATELET VOLUME 10.3 fL (7.4-11.4); MONOCYTES % (AUTO) 15.2 %; PLT - PLATELET COUNT 261 10^3/uL (130-450); RED BLOOD COUNT 3.77 10^6/uL (4.70-6.10); RED CELL DISTRIBUTION WIDTH 13.6 % (12.0-15.0); WHITE BLOOD COUNT 6.9 x10^3/uL (4.8-10.8)
[2019-02-18 05:23] LABS: CREATININE 0.8 mg/dL (0.6-1.2)
[2019-02-18] MEDS: ACETAMINOPHEN 325 MG TABLET PO SCH ×3 (06:33→21:00)
[2019-02-18] MEDS: oxyCODONE 5 MG TABLET PO SCH (06:33)
[2019-02-18] MEDS: FUROSEMIDE 20 MG/2 ML VIAL IVP SCH ×2 (06:33→14:16)
[2019-02-18] MEDS: SODIUM CHLORIDE FLUSH 0.9% 10 ML SYRINGE IVP PRN ×2 (06:34→06:38)
[2019-02-18] MEDS: LABETALOL 100 MG TABLET PO SCH ×3 (06:35→21:00)
[2019-02-18] MEDS: amLODIPine 5 MG TABLET PO SCH (08:52)
[2019-02-18] MEDS: POLYETHYLENE GLYCOL 3350 17 GM PACKET PO SCH (08:53)
[2019-02-18] MEDS: GABAPENTIN 300 MG CAPSULE PO SCH ×3 (08:53→20:40)
[2019-02-18] MEDS: SODIUM CHLORIDE FLUSH 0.9% 10 ML SYRINGE IVP SCH ×2 (08:53→17:56)
[2019-02-18] MEDS: diazePAM 5 MG TABLET PO SCH ×2 (08:53→20:41)
[2019-02-18] MEDS: CHLORHEXIDINE GLUCONATE 15 ML UDC PO SCH ×2 (08:57→20:40)
--- NOTE | 2019-02-18 12:14 | PROVIDER PROGRESS NOTE ---
Assessment/Plan - Problem List (1) COPD exacerbation Assessment/Plan: O2 demands have decreased down to his baseline 3L O2 per n.c. The girlfriend reported to me yesterday that he has 2 oxygen machines at home; one is a concentrator to use with a with nasal cannula, the other is an "Indigent" machine which gives him "puffs of oxygen" and he was using this one more, right before this admission, possibly giving himself high oxygen levels,, decreasing his hypoxic drive to ventilate, causing CO2 retention and CO2 narcosis. Continue nebs, he was not put on iv steroids. (2) Acute diastolic CHF (congestive heart failure), NYHA class 4 Assessment/Plan: An Echo wad done this admission which shows a (newly) dilated LV, but preserved LVEF, however Grade 2 doiastolic dysfunction was seen. He now remembers that he has had leg edema for 1-2 years, worse in the summer, for which he uses compression stockings. Clinically improved edema. Weight down 3 kg from its max. Will transition iv >> po diuretics Will transfer out of ICU and increase PT (3) Pulmonary edema cardiac cause Assessment/Plan: As in #2 Will recheck a CXR tomorrow a.m. since the L side has significant diminished breath sounds yet. (4) Confusion Assessment/Plan: He was confused from hypersomnolence related to Co2 retention plus from hypoxia. The girlfriend reported to me yesterday that he has 2 oxygen machines at home; one is a concentrator to use with a with nasal cannula, the other is an "Indigent" machine which gives him "puffs of oxygen" and he was using this one more, right before this admission, possibly giving himself high oxygen levels,, decreasing his hypoxic drive to ventilate, causing CO2 retention and CO2 narcosis. Today, I think he is lethargic from his scheduled narcotics. I questioned him r egarding wether he takes his narcotic meds "on a schedule or as needed" and he answered "as scheduled", then described "waiting until he really needs them". I will change the ordered Oxycodone from scheduled tid to tid prn, in order to decrease his narcotic intake. He is also on Valium on a tid schedule, which I will decrease slightly. (5) Dissecting aneurysm of thoracic aorta, [place] type B Assessment/Plan: Stable (6) Hypertension Assessment/Plan: Stable on current meds, in fact BP is "soft", probably due to narcotics and Valium doses. I will adjust Oxycodone and Valium orders. (7) Depression Assessment/Plan: He is on his home meds while here. - Current Meds Current Meds: Current Medications Generic Name Dose Route Start Last Admin Trade Name Freq PRN Reason Stop Dose Admin Acetaminophen 650 mg 02/16/19 22:00 02/18/19 06:33 Tylenol PO 650 mg TID ROMEO Administration Amlodipine Besylate 2.5 mg 02/17/19 09:00 02/18/19 08:52 Norvasc PO 2.5 mg DAILY ROMEO Administration Chlorhexidine Gluconate 15 ml 02/16/19 21:00 02/18/19 08:57 Peridex PO 15 ml BID ROMEO Administration Diazepam 5 mg 02/17/19 08:00 02/18/19 08:53 Valium PO 5 mg 0800,1600 ROMEO Administration Diazepam 10 mg 02/16/19 21:00 02/17/19 20:26 Valium PO 10 mg QPM ROMEO Administration Furosemide 20 mg 02/17/19 06:00 02/18/19 06:33 Lasix Inj 20mg Vial IVP 20 mg BIDDIURETIC ROMEO Administration Gabapentin 1,200 mg 02/16/19 21:00 02/17/19 20:26 Neurontin PO 1,200 mg QPM ROMEO Administration Gabapentin 900 mg 02/17/19 08:00 02/18/19 08:53 Neurontin PO 900 mg 0800,1600 ROMEO Administration Labetalol HCl 200 mg 02/16/19 22:00 02/18/19 06:35 Trandate PO 200 mg TID ROMEO Administration Oxycodone HCl 20 mg 02/16/19 18:00 02/18/19 06:33 Roxicodone PO 20 mg TID ROMEO Administration Polyethylene Glycol 17 gm 02/16/19 09:00 02/18/19 08:53 Miralax PO 17 gm DAILY ROMEO Administration Sodium Chloride 10 ml 02/15/19 20:18 02/18/19 06:38 Normal Saline Flush 0.9% IVP 10 ml PRN PRN Administration NEEDED PER PROVIDER ORDERS Sodium Chloride 10 ml 02/16/19 01:00 02/18/19 08:53 Normal Saline Flush 0.9% IVP 10 ml 0100,0900,1700 [facility] Administration - Lab Result Fish Bone Diagrams: 02/18/19 04:41 02/18/19 04:41 - Additional Planning My Orders: My Active Orders 02/17/19 11:49 Miscellaenous Nursing Order [RC] QSHIFT 02/18/19 09:27 Miscellaenous Nursing Order [RC] QSHIFT Subjective - Subjective Patient Reports: Feeling Better, Resting Comfortably Objective Vital Signs: Vital Signs - 24 hr 02/17/19 02/17/19 02/17/19 12:30 16:00 19:51 Temperature 36.3 C L Heart Rate [ 80 93 Monitoring electrodes] Respiratory 18 12 19 Rate Blood Pressure 135/87 H 117/75 [Left Brachial artery] Blood Pressure [Right Brachial artery] O2 Saturation 95 97 96 02/17/19 02/17/19 02/17/19 21:00 22:00 23:00 Temperature Heart Rate [ 90 76 77 Monitoring electrodes] Respiratory 16 14 9 L Rate Blood Pressure 119/70 [Left Brachial artery] Blood Pressure 94/60 100/60 [Right Brachial artery] O2 Saturation 98 99 98 02/18/19 02/18/19 02/18/19 00:00 01:00 02:00 Temperature 36.3 C L Heart Rate [ 85 85 87 Monitoring electrodes] Respiratory 13 11 L 11 L Rate Blood Pressure [Left Brachial artery] Blood Pressure 118/60 110/62 112/64 [Right Brachial artery] O2 Saturation 98 99 96 02/18/19 02/18/19 02/18/19 03:00 04:00 05:00 Temperature 36.3 C L Heart Rate [ 90 90 101 H Monitoring electrodes] Respiratory 12 12 14 Rate Blood Pressure [Left Brachial artery] Blood Pressure 115/67 112/72 130/83 H [Right Brachial artery] O2 Saturation 96 96 92 02/18/19 02/18/19 02/18/19 06:00 07:00 08:00 Temperature 35.9 C L Heart Rate [ 94 87 84 Monitoring electrodes] Respiratory 18 18 16 Rate Blood Pressure [Left Brachial artery] Blood Pressure 123/75 108/64 107/59 L [Right Brachial artery] O2 Saturation 93 93 93 Oxygen O2 Source Oxymizer Oxygen Flow Rate 4 I&O (Last 24 Hrs): Intake and Output Totals x24h 02/16/19 02/17/19 02/18/19 23:59 23:59 23:59 Intake Total 270 1740 820 Output Total 1950 1350 825 Balance -1680 390 -5 General: Oriented x3, Other (Eyelids half closed, appears fatigued) HEENT: Mucous membr. moist/pink, Other (wearing O2 by n.c.) Neck: Supple, Other (Cannot eval neck due to long burt) Neuro: Non Focal, Other (Bradykinetis with eyelids half closed) Cardiovascular: No murmurs Respiratory: No respiratory distress, Other (L side diminished, R clear ant and posteriorly) Abdomen: Soft Extremities: No edema - Results Results: Laboratory Results WBC 6.9 x10^3/uL (4.8-10.8) 02/18/19 04:41 RBC 3.77 10^6/uL (4.70-6.10) L 02/18/19 04:41 Hgb 11.5 g/dL (14.0-18.0) L 02/18/19 04:41 Hct 39.6 % (42.0-52.0) L 02/18/19 04:41 MCV 105.0 fL (80.0-94.0) H 02/18/19 04:41 MCH 30.5 pg (27.0-31.0) 02/18/19 04:41 MCHC 29.0 g/dL (32.0-36.0) L 02/18/19 04:41 RDW 13.6 % (12.0-15.0) 02/18/19 04:41 Plt Count 261 10^3/uL (130-450) 02/18/19 04:41 MPV 10.3 fL (7.4-11.4) 02/18/19 04:41 Neut # (Auto) 5.0 10^3/uL (1.5-6.6) 02/18/19 04:41 Lymph # (Auto) 0.7 10^3/uL (1.5-3.5) L 02/18/19 04:41 [place] # (Auto) 1.0 10^3/uL (0.0-1.0) 02/18/19 04:41 Eos # (Auto) 0.1 10^3/uL (0.0-0.7) 02/18/19 04:41 Baso # (Auto) 0.0 10^3/uL (0.0-0.1) 02/18/19 04:41 Absolute Nucleated RBC 0.00 x10^3/uL 02/18/19 04:41 Total Counted 100 02/15/19 18:40 Band Neuts % (Manual) 4 % (0-10) 02/15/19 18:40 Abnorm Lymph % (Manual) 0 % 02/15/19 18:40 Nucleated RBC % 0.0 /100WBC 02/18/19 04:41 Neutrophils # (Manual) 5.6 10^3/uL (1.5-6.6) 02/15/19 18:40 Lymphocytes # (Manual) 0.4 10^3/uL (1.5-3.5) L 02/15/19 18:40 Monocytes # (Manual) 1.6 10^3/uL (0.0-1.0) H 02/15/19 18:40 Eosinophils # (Manual) 0.1 10^3/uL (0-0.7) 02/15/19 18:40 Basophils # (Manual) 0.0 10^3/uL (0-0.1) 02/15/19 18:40 Differential Comment MANUAL DIFFERENTIAL 02/15/19 18:40 Manual Slide Review Indicated 02/16/19 04:25 Platelet Estimate NORMAL (130-450,000) (NORMAL) 02/16/19 04:25 Platelet Morphology NORMAL APPEARANCE (NORMAL) 02/15/19 18:40 RBC Morph Micro Appear 1+ ANISOCYTOSIS (NORMAL) 1+ HYPOCHROMASIA (NORMAL) 1+ STOMATOCYTES (NORMAL) 02/15/19 18:40 RBC Morph Micro Appear 1+ ANISOCYTOSIS (NORMAL) 1+ HYPOCHROMASIA (NORMAL) 1+ STOMATOCYTES (NORMAL) 02/15/19 18:40 RBC Morph Micro Appear 1+ MACROCYTOSIS (NORMAL) 2+ HYPOCHROMASIA (NORMAL) 02/16/19 04:25 RBC Morph Micro Appear 1+ MACROCYTOSIS (NORMAL) 2+ HYPOCHROMASIA (NORMAL) 02/16/19 04:25 Bld Gas Analysis Time 0521 02/17/19 05:13 Sample Site LEFT RADIAL 02/17/19 05:13 ABG pH 7.39 (7.35-7.45) 02/17/19 05:13 ABG pCO2 74 mmHg (34-45) H* 02/17/19 05:13 ABG pO2 67 mmHg (80-100) L 02/17/19 05:13 ABG HCO3 43.4 mmol/L (22.0-26.0) H 02/17/19 05:13 ABG Total CO2 45.7 MMOL/L (21.0-29.0) H* 02/17/19 05:13 ABG O2 Saturation 93 % (94-98) L 02/17/19 05:13 ABG Base Excess 15.0 mmol/L (-2.0-3.0) H 02/17/19 05:13 Zachary Test POSITIVE 02/17/19 05:13 O2 Delivery Device OXYMIZER 02/17/19 05:13 O2 Liters/Min 3.00 LPM 02/17/19 05:13 FiO2 4.00 02/16/19 05:45 Sodium 146 mmol/L (135-145) H 02/18/19 04:41 Potassium 4.1 mmol/L (3.5-5.0) 02/18/19 04:41 Chloride 88 mmol/L (101-111) L 02/18/19 04:41 Carbon Dioxide 44 mmol/L (21-32) H* 02/18/19 04:41 Anion Gap 14.0 (6-13) H 02/18/19 04:41 BUN 39 mg/dL (6-20) H 02/18/19 04:41 Creatinine 0.8 mg/dL (0.6-1.2) 02/18/19 04:41 Estimated GFR (MDRD) 96 (>89) 02/18/19 04:41 Glucose 132 mg/dL (70-100) H 02/18/19 04:41 Calcium 9.0 mg/dL (8.5-10.3) 02/18/19 04:41 Total Bilirubin 1.0 mg/dL (0.2-1.0) 02/15/19 18:40 AST 27 IU/L (10-42) 02/15/19 18:40 ALT 32 IU/L (10-60) 02/15/19 18:40 Alkaline Phosphatase 86 IU/L (42-121) 02/15/19 18:40 Troponin I < 0.04 ng/mL (<0.49) 02/16/19 08:25 B-Natriuretic Peptide 548 pg/mL (5-100) H 02/15/19 18:40 Total Protein 7.4 g/dL (6.7-8.2) 02/15/19 18:40 Albumin 3.3 g/dL (3.2-5.5) 02/15/19 18:40 Globulin 4.1 g/dL (2.1-4.2) 02/15/19 18:40 Albumin/Globulin Ratio 0.8 (1.0-2.2) L 02/15/19 18:40 Lipase 23 U/L (22-51) 02/15/19 18:40 Nasal Screen MRSA (PCR) NEGATIVE (NEGATIVE) 02/17/19 06:30 - Procedures Procedures: Procedures INSERTION OF INFUSION DEV INTO SUP VENA CAVA, PERC APPROACH (05/16/16)
[2019-02-18] MEDS ORDERED: oxyCODONE 5 MG TABLET PO PRN (12:54)
[2019-02-18] MEDS ORDERED: diazePAM 5 MG TABLET PO PRN (12:54)
[2019-02-18] MEDS: oxyCODONE 5 MG TABLET PO PRN (14:09)
[2019-02-19] MEDS: oxyCODONE 5 MG TABLET PO PRN ×3 (01:02→14:18)
[2019-02-19] MEDS: SODIUM CHLORIDE FLUSH 0.9% 10 ML SYRINGE IVP SCH ×3 (01:10→14:20)
[2019-02-19] MEDS: ACETAMINOPHEN 325 MG TABLET PO SCH ×2 (05:16→14:19)
[2019-02-19] MEDS: LABETALOL 100 MG TABLET PO SCH ×2 (05:18→14:25)
[2019-02-19] MEDS: SODIUM CHLORIDE FLUSH 0.9% 10 ML SYRINGE IVP PRN (05:19)
[2019-02-19] MEDS: FUROSEMIDE 20 MG/2 ML VIAL IVP SCH ×2 (05:19→14:19)
[2019-02-19 07:36] LABS: CALCIUM 8.8 mg/dL (8.5-10.3); CREATININE 0.8 mg/dL (0.6-1.2)
[2019-02-19] MEDS: amLODIPine 5 MG TABLET PO SCH (08:31)
[2019-02-19] MEDS: GABAPENTIN 300 MG CAPSULE PO SCH (08:36)
[2019-02-19] MEDS: CHLORHEXIDINE GLUCONATE 15 ML UDC PO SCH (08:37)
[2019-02-19] MEDS: POLYETHYLENE GLYCOL 3350 17 GM PACKET PO SCH (08:40)
--- NOTE | 2019-02-19 09:27 | XRAY Report ---
Reason: F/U pulmonary edema and pleural effusions Procedure Date: 02/19/2019 Accession Number: [id number] / [id number] Procedure: XR - Chest 1 View X-Ray CPT Code: 29862 FULL RESULT: EXAM: CHEST RADIOGRAPHY EXAM DATE: 02/19/2019 09:07 AM. CLINICAL HISTORY: Followup pulmonary edema and pleural effusions. COMPARISON: CHEST 1 VIEW 02/15/2019 6:55 PM. TECHNIQUE: 1 view. FINDINGS: Lungs/Pleura: Redemonstration of left-sided volume loss with postsurgical appearance of the left hilar region and interval decrease in opacification of the remaining left pulmonary hemithorax. A prominent gas bubble in the left lower hemithorax is felt to more likely represent bowel and a nonvisualized elevated hemidiaphragm than a gas-containing pleural effusion. No pneumothorax is seen. Accounting for the degree of rotation, increased markings at the right lung base are felt to represent increased pulmonary markings rather than airspace disease given cardiomegaly. Mediastinum: Persistent enlargement of the cardiomediastinal silhouette with shift towards the left hemithorax with the aforementioned postsurgical changes suggestive of lobectomy are seen. Other: None. IMPRESSION: Interval decrease in opacification of the left hemithorax. Cardiomegaly with likely central pulmonary congestion. RADIA
--- NOTE | 2019-02-19 11:18 | Discharge Plan ---
Discharge Plan Problem Reviewed?: Yes Disposition: Home, Self Care Condition: Stable Prescriptions: Furosemide [Lasix] 20 mg PO BID #60 tablet Diet: Regular Activity Restrictions: Activity as Tolerated Shower Restrictions: No Driving Restrictions: No Instruction Topics: Edema Pulmonary, Anxiety Body Response, COPD Health Concerns: You were brought into the hospital because you had become very short of breath, coughing a lot, and you were very confused. You would trail off in midsentence and seem incoherent. When you came to the emergency room we found her to have a very low oxygen and your emphysema seem to be acutely exacerbated. You had already been seen in the emergency room the day before and sent home. This time we brought you in for further treatment of your emphysema. We found you to have not only emphysema, but congestive heart failure. We started you on Lasix intravenously. Plan of Treatment: 1. An ultrasound of your heart called an echocardiogram showed you to have fairly normal pump function on the right side of your heart and left side of your heart. The right side of your heart is very big because of your emphysema. The right side of your heart also has regurgitation of the valve on that side. You have a little bit of high blood pressure of the lungs causing right-sided heart failure. 2. Lasix 20 mg intravenously was given twice a day. We are switching you to a pill twice a day. We want you to continue your other medications of Norvasc, an d labetalol. Because Lasix can lower your potassium, please see your primary care provider Dr. Higginbotham in a week and get a BMP and BNP checked 3. We rechecked her oxygen levels. You continue to need oxygen but need to be on 5 L when you walk. And when you sit down to watch TV or eat dinner you can be at 3 L. Please make sure you go no higher than this because too much oxygen can actually make your emphysema worse because it asked like a deep present to your breathing. We are also ordering a portable oxygen concentrator to allow you to leave your house and still get oxygen. 4. Please see Dr. Higginbotham in 1 week. He needs to check your blood pressure. Check your blood work. Care Goals: In the next few days hopefully oxygen use will be less as your body improves. Please asked Dr. Higginbotham if you are a candidate for transition to palliative care consultative service. Assessment: Patient and care provider expressed understanding of instructions and promised to follow through No Smoking: If you smoke, Please STOP! Call for help. Follow-up with: Cristian Higginbotham MD [Primary Care Provider] -
[2019-02-19 15:45] VITALS: BP 116/56
--- NOTE | 2019-02-20 15:53 | DISCHARGE SUMMARY ---
Physician: Alicja Aquino MD DATE OF ADMISSION: 02/15/2019 DATE OF DISCHARGE: 02/19/2019 PRIMARY CARE PROVIDER: Cristian Higginbotham MD DISCHARGE DIAGNOSES 1. Acute diastolic heart failure. 2. Chronic obstructive pulmonary disease with mild exacerbation. 3. Dissecting aneurysm of thoracic aorta, [place] type B. 4. Hypertension. 5. Depression. 6. Obtundation from hypercapnia and benzodiazepines. DISCHARGE MEDICATIONS 1. Acetaminophen 650 mg p.o. t.i.d. 2. Amlodipine 2.5 mg daily. 3. Diazepam 5 mg at 0800 and 1600, 10 mg p.o. q.p.m. 4. Gabapentin 900 mg at 0800 and 1600 with the diazepam and gabapentin 1200 mg p.o. q.p.m. with the evening diazepam 5. DuoNeb via nebulizer q.i.d. 6. Labetalol 200 mg p.o. t.i.d. 7. Oxycodone 20 mg p.o. t.i.d. 8. Senna 3 tablets b.i.d. 9. Lasix 20 mg p.o. b.i.d. PRINCIPAL PROCEDURES 1. Echocardiogram. Overall left ventricular systolic function normal with ejection fraction of 55%-60%. Grade 2 diastolic dysfunction. Moderate right ventricular enlargement with right ventricular systolic function normal. [id number] tricuspid regurgitation. Moderately abnormal right heart pressures with RVSP at rest 51 mmHg. As compared to prior echo 05/2016, pulmonary artery systolic pressure has decreased. Moderate increase in left atrial enlargement. [id number]-khfqyo increase in right atrial enlargement. [place] type B aortic dissection with a true and false lumen evident. As compared to prior echo, diameters of the abdominal aortic aneurysm appeared to have increased slightly. Pulmonary artery is severely dilated. 2. Chest x-ray with large heart showing diffuse haziness, concerning for pulmonary edema. Chronic postoperative changes in the left lung with eventration of the diaphragm, no acute infiltrate. HOSPITAL COURSE: The patient is a 68-year-old white male who was brought in by his family to our emergency room because he was dyspneic, coughing and seemed confused. He travels off in mid sentence and seemed incoherent. He has chronic COPD and is on 3 L of nasal cannula oxygen. He was saturating 89% in the emergency room. He had already been seen in the emergency room for these complaints of dyspnea, but recovered after treatment and was discharged home. On today's admission, he was wheezing in addition to his complaints of shortness of breath and coughing. He had no fever, chills, abdominal pain, chest pain, nausea. In the emergency room, chest x-ray showed pulmonary edema and BNP was 548. He does have a past medical history of a thoracoabdominal aortic dissection. He is deemed not a surgical candidate. He also has high blood pressure, hyperlipidemia, spinal stenosis with chronic back pain. He also has depression with anxiety. He has managed to survive stage IV lung cancer that was non-small cell. He had a left upper lobe lobectomy, chemotherapy, and radiation. He has also had adenocarcinoma of the prostate with a radical retropubic prostatectomy. He was treated initially as COPD exacerbation but did not receive any steroids and just received aggressive nebulizer treatment with DuoNeb. He also was diuresed on the basis of his chest x-ray. Echocardiogram was reviewed and, while he had improvement in his pulmonary hypertension, he appears to have left- sided heart failure from a diastolic perspective. As such, he is now receiving new diuretic therapy as in addition to his usual home medications. His blood pressure was in the 120s to 130s without needing any change in medication. Depression remained stable. On the day before discharge, he was again acutely obtunded, confused and lethargic. We feel that it is a combination of elevated pCO2. A blood gas on 02/17/2019 showed a pH of 7.39, pCO2 of 74, pO2 of 67. Of note, the patient did require BiPAP the first 2 days he was here. The patient also received his usual amount of gabapentin and opiates. They may be mildly excessive. While they do control his back pain, in the setting of COPD caused enough sedation that he has worsening hypercapnia. On the day of discharge, he was awake, alert, back to baseline. He was tired but able to get up and walk in his room. 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 His friend "Radha" lives with him and helps take care of him with cooking and cleaning tasks. It is unclear how independent he is if he has this person living in the home with him helping take care of him. He had no occupational therapy needs or goals to address at this time. From the physical therapy perspective, he is able to stand and transfer with a 4-wheel walker and contact guard assist. Walked 40 feet. His O2 saturations do drop to 88% on 3 L. It is recommended that he get home health physical therapy. However, he does leave the house, drive. As such, it is recommended he up with outpatient physical therapy and possibly even cardiopulmonary rehabilitation to improve his endurance. After diuresis and nebulizers, patient was felt stable enough to return to home. Temperature is 37.0. Pulse is 84. Blood pressure 116/56, respirations 18, and he is 93% saturated on 3 L. We did an oxygen desaturation test and he was hypoxic at rest with room air saturations of 86% at rest. With 2 L nasal cannula at rest, his O2 saturations were 88%. On 3 L at rest, his O2 saturations were 93%. With ambulation on 3 L, O2 saturations were 80%. On 4 L, 85%, and finally on 5 L per minute with ambulation, his O2 saturations were able to come up to 90%. As such, I am updating patient's oxygen order to 3 L per minute at rest and 5 L per minute with ambulation to help treat his chronic congestive heart failure and associated hypoxia. I am also ordering a portable oxygen concentrator for portability and better compliance with oxygen use. These orders will be sent to [employer], the patient's current oxygen DME company. He has diminished breath sounds diffusely and prolonged end-exhalation. With walking in the room, he does get slightly tachypneic, but he quickly recovers within a minute of sitting down. While I did hear wheezing on the morning of discharge, by the end of the day of discharge he was no longer wheezing. I think wheezing comes intermittently for him. His PMI is slightly laterally displaced. He has a regular rate and rhythm with a systolic ejection murmur, as well as diastolic murmur heard at the apex. His abdomen is soft, nontender, with normal bowel sounds. He had trace edema around his ankles. It is nonpitting. He has been asked to follow up with his primary care provider, Dr. Cristian Higginbotham. Greater than 30 minutes was spent coordinating discharge. cc: Cristian Higginbotham MD TD: 02/20/2019 14:21 [id number]
== END 2019-02-19 17:50 | disposition home or self-care (01) | DRG 291 ==
LOC: ED 18:09 → MS2 20:18 → ICU 02-16 06:32 → MS3 02-18 16:43
PROVIDERS: ADMIT Internal Medicine; ATTEND Specialist
DX: I11.0 Hypertensive heart disease with heart failure (principal); I71.03 Dissection of thoracoabdominal aorta; J81.0 Acute pulmonary edema; I11.9 Hypertensive heart disease without heart failure; E87.2 Acidosis; I50.33 Acute on chronic diastolic (congestive) heart failure; I50.813 Acute on chronic right heart failure; J43.9 Emphysema, unspecified; R09.02 Hypoxemia; G47.14 Hypersomnia due to medical condition; R41.0 Disorientation, unspecified; T42.4X5A Adverse effect of benzodiazepines, initial encounter; Y92.009 Unspecified place in unspecified non-institutional (private) residence as the place of occurrence of the external cause; I07.1 Rheumatic tricuspid insufficiency; I27.20 Pulmonary hypertension, unspecified; M48.00 Spinal stenosis, site unspecified; G89.29 Other chronic pain; F41.8 Other specified anxiety disorders; T14.8XXS Other injury of unspecified body region, sequela; Z99.81 Dependence on supplemental oxygen; Z85.118 Personal history of other malignant neoplasm of bronchus and lung; Z90.2 Acquired absence of lung [part of]; Z92.21 Personal history of antineoplastic chemotherapy; Z92.3 Personal history of irradiation; Z85.46 Personal history of malignant neoplasm of prostate; Z90.79 Acquired absence of other genital organ(s); Z79.891 Long term (current) use of opiate analgesic; Z79.899 Other long term (current) drug therapy; Z87.891 Personal history of nicotine dependence
CPT/HCPCS: 36415; 36600; 71045; 80048; 80053; 82803; 83690; 83880; 84484; 85025; 87150; 93005; 93306; 94640; 94660; 94761; 96374; 97162; 97165; 97530; 99284; 99285; A9270

== ENCOUNTER 2020-08-11 21:35 | Inpatient (IN) | payer MEDICARE, OTHER ==
[2020-08-11] MEDS: IPRATROPIUM/ALBUTEROL 3 ML NEB INH STA ×2 (22:19→22:34)
[2020-08-11 22:24] LABS: BASOPHILS % (AUTO) 0.4 %; EOSINOPHILS # (AUTO) 0.1 10^3/uL (0.0-0.7); EOSINOPHILS % (AUTO) 0.7 %; HGB - HEMOGLOBIN 7.9 g/dL (14.0-18.0); LYMPHOCYTES # (AUTO) 0.6 10^3/uL (1.5-3.5); LYMPHOCYTES % (AUTO) 7.9 %; MEAN CORPUSCULAR HEMOGLOBIN 24.2 pg (27.0-31.0); MEAN CORPUSCULAR HGB CONC 25.4 g/dL (32.0-36.0); MEAN CORPUSCULAR VOLUME 95.1 fL (80.0-94.0); MEAN PLATELET VOLUME 10.6 fL (7.4-11.4); NEUTROPHILS # (AUTO) 5.8 10^3/uL (1.5-6.6); NEUTROPHILS % (AUTO) 77.2 %; PLT - PLATELET COUNT 172 10^3/uL (130-450); RED BLOOD COUNT 3.27 10^6/uL (4.70-6.10); RED CELL DISTRIBUTION WIDTH 16.2 % (12.0-15.0); WHITE BLOOD COUNT 7.5 x10^3/uL (4.8-10.8)
[2020-08-11 22:44] LABS: ALBUMIN 3.6 g/dL (3.2-5.5); ALBUMIN/GLOBULIN RATIO 1.1 (1.0-2.2); ALKALINE PHOSPHATASE 77 IU/L (42-121); ALT ALANINE AMINOTRANSFERASE 11 IU/L (10-60); AST ASPARTATE AMINOTRANSFERASE 19 IU/L (10-42); BILIRUBIN,TOTAL 0.9 mg/dL (0.2-1.0); BUN - BLOOD UREA NITROGEN 21 mg/dL (6-20); CALCIUM 9.2 mg/dL (8.5-10.3); CREATININE 0.8 mg/dL (0.6-1.2); GLUCOSE 138 mg/dL (70-100); LIPASE 39 U/L (22-51); MAGNESIUM 1.8 mg/dL (1.7-2.8); SODIUM 143 mmol/L (135-145); TOTAL PROTEIN 6.9 g/dL (6.7-8.2)
[2020-08-11 22:45] LABS: PLATELET ESTIMATE, MANUAL NORMAL (130-450,000) (NORMAL); PLATELET MORPHOLOGY 1+ GIANT PLATELETS (NORMAL)
[2020-08-11 22:46] LABS: CARBON DIOXIDE - CO2 > 45 mmol/L (21-32); CHLORIDE 76 mmol/L (101-111)
[2020-08-11] MEDS ORDERED: DEXAMETHASONE 10 MG/ML VIAL IVP STA (23:15)
[2020-08-11] MEDS ORDERED: AZITHROMYCIN INJ 500 MG in SODIUM CHLORIDE 0.9% 250 ML IV STA (23:15)
[2020-08-11] MEDS ORDERED: cefTRIAXone 1 GM VIAL IVP STA (23:15)
--- NOTE | 2020-08-11 23:16 | ED Physician Documentation ---
PD HPI DYSPNEA - Stated complaint Stated Complaint: SOA - Chief complaint Chief Complaint: Resp - History obtained from History obtained from: Patient - History of Present Illness Timing - onset: How many days ago (several days to a week of increasing dyspnea despite home oxygen.) Timing - duration: Days (he states he has had increased dyspnea for several days, more increased today despite higher oxygen NC at home.) Timing - details: Gradual onset, Still present Inciting event(s): URI (no fever, but with some increased cough and dyspnea.). No: Out of meds Improved by: O2 (he increased his usual NC oxygen from 2.5 to 4 lpm.). No: Sitting up Worsened by: Exertion, Coughing. No: Laying flat Associated symptoms: Cough (mildly increased without sputum.), Wheezing, Chest pain / discomfort (tightness), Bilateral edema (chronic with some increase recently.). No: Fever, Hemoptysis, Palpitations, Unilateral edema Similar symptoms before: Diagnosis Recently seen: Not recently seen PD PAST MEDICAL HISTORY - Past Medical History Past Medical History: Yes Cardiovascular: Hypertension, High cholesterol, Arrhythmia, Other Respiratory: COPD, Emphysema, Other (left lung cancer with lobectomy.) Neuro: None, Other Endocrine/Autoimmune: None GI: GERD : None HEENT: None Psych: Depression, Anxiety Musculoskeletal: Osteoarthritis, Chronic back pain Derm: None Other Past Medical History: lung CA - Past Surgical History Past Surgical History: Yes General: Appendectomy, Bowel surgery, Colonoscopy Ortho: Hip replacement Cardiovascular: Lobectomy - Present Medications Home Medications: Ambulatory Orders Medication Instructions Recorded Confirmed Labetalol [Trandate] 200 mg PO TID 02/27/13 02/16/19 Gabapentin [Neurontin] 900 mg PO 0800,1600 05/16/16 02/16/19 Sennosides/Docusate Sodium 3 tab PO BID 05/17/16 02/16/19 [Senna-S Tablet] Acetaminophen 650 mg PO TID 02/16/19 02/16/19 Amlodipine Besylate 2.5 mg PO DAILY 02/16/19 02/16/19 Gabapentin 1,200 mg PO QPM 02/16/19 02/16/19 Ipratropium/Albuterol [Duoneb] 3 ml INH QID 02/16/19 02/16/19 diazePAM [Diazepam] 5 mg PO 0800,1600 02/16/19 02/16/19 diazePAM [Diazepam] 10 mg PO QPM 02/16/19 02/16/19 Furosemide [Lasix] 20 mg PO BID #60 tablet 02/19/19 - Allergies Allergies/Adverse Reactions: Allergies Allergy/AdvReac Type Severity Reaction Status Date / Time methadone [From Dolophine] Allergy Unknown Verified 08/11/20 21:47 Penicillins Allergy Rash Verified 08/11/20 21:47 - Living Situation Living Situation: reports: Alone (states his few years ago of cancer. ) Living Arrangement: reports: At home - Social History Does the pt smoke?: No Smoking Status: Never smoker Does the pt drink ETOH?: No Does the pt have substance abuse?: No - Immunizations Immunizations are current?: Yes - POLST Patient has POLST: Yes POLST Status: DNR (also wants no interventional treatment (such as regarding heart); and does not want intubation.) PD ED PE NORMAL - Vitals Vital signs reviewed: Yes - General General: Alert and oriented X 3, Well developed/nourished, Other (somewhat confused initially; improved with oxygen improvement. ) - HEENT HEENT: Pharynx benign. No: Moist mucous membranes - Neck Neck: Supple, no meningeal sign, No adenopathy - Cardiac Cardiac: No: RRR (slightly tachycardic with some irregularity. ) - Respiratory Respiratory: No: Clear bilaterally (diffuse mild to moderate wheezing. No prolonged expiratory phase. Able to talk in sentences. Faint fine crackles at bases. ) - Abdomen Abdomen: Soft, Non tender, Non distended, No organomegaly. No: Normal bowel sounds (decreased) - Male Male : Deferred - Rectal Rectal: Deferred - Back Back: No CVA TTP - Derm Derm: Other (pallor/dusky initially; improved with increased oxygen sats. ). No: Warm and dry - Extremities Extremities: No tenderness to palpate, Normal ROM s pain, No calf tenderness / cord, Other (1+ edema in both lower legs and ankles. ) - Neuro Neuro: Alert and oriented X 3, No motor deficit, No sensory deficit, Normal speech - Psych Psych: No: Normal mood (depressed mood; denies suicidal) Results - Vitals Vitals: Vital Signs - 24 hr 08/11/20 08/11/20 08/11/20 21:48 22:19 22:32 Temperature 36.5 C Heart Rate 110 H 101 H 101 H Respiratory 24 15 20 Rate Blood Pressure 137/85 H 122/69 128/76 O2 Saturation 80 L 100 100 08/11/20 08/11/20 08/11/20 23:00 23:30 23:55 Temperature Heart Rate 100 98 100 Respiratory 16 27 H Rate Blood Pressure 126/66 114/75 108/80 O2 Saturation 99 99 08/12/20 00:00 Temperature Heart Rate 91 Respiratory Rate Blood Pressure 119/66 O2 Saturation Oxygen O2 Source Oxymask Oxygen Flow Rate 4 - EKG (time done) 22:09 Rate: Rate (enter#) (97) Rhythm: Other (appears possible atrial fib/flutter versus baseline artifact. ) Ischemia: No: ST elevation c/w ischemia, ST depression - Labs Labs: Laboratory Tests 08/11/20 08/11/20 08/11/20 22:17 22:17 22:17 WBC 7.5 RBC 3.27 L Hgb 7.9 L Hct 31.1 L MCV 95.1 H MCH 24.2 L MCHC 25.4 L RDW 16.2 H Plt Count 172 MPV 10.6 Neut # (Auto) 5.8 Lymph # (Auto) 0.6 L Lander # (Auto) 1.0 Eos # (Auto) 0.1 Baso # (Auto) 0.0 Absolute Nucleated RBC 0.00 Nucleated RBC % 0.0 Manual Slide Review Indicated Platelet Estimate NORMAL (130-450,000) Platelet Morphology 1+ GIANT PLATELETS RBC Morph Micro Appear 1+ POIKILOCYTOSIS Sodium 143 Potassium 3.8 Chloride 76 L* Carbon Dioxide > 45 H* Anion Gap 22.0 H BUN 21 H Creatinine 0.8 Estimated GFR (MDRD) 96 Glucose 138 H Calcium 9.2 Magnesium 1.8 Total Bilirubin 0.9 AST 19 ALT 11 Alkaline Phosphatase 77 Troponin I High Sens 40.6 H* B-Natriuretic Peptide Total Protein 6.9 Albumin 3.6 Globulin 3.3 Albumin/Globulin Ratio 1.1 Lipase 39 Nasal Adenovirus (PCR) Nasal B. parapertussis DNA (PCR) Nasal Coronavir 229E PCR Nasal Coronavir HKU1 PCR Nasal Coronavir NL63 PCR Nasal Coronavir OC43 PCR Nasal Enterovir/Rhinovir PCR Nasal Influenza B PCR Nasal Influenza A PCR Nasal Parainfluen 1 PCR Nasal Parainfluen 2 PCR Nasal Parainfluen 3 PCR Nasal Parainfluen 4 PCR Nasal RSV (PCR) Nasal B.pertussis DNA PCR Nasal C.pneumoniae (PCR) Siddharth Human Metapneumo PCR Nasal M.pneumoniae (PCR) Nasal SARS-CoV-2 (PCR) 08/11/20 08/11/20 22:17 22:24 WBC RBC Hgb Hct MCV MCH MCHC RDW Plt Count MPV Neut # (Auto) Lymph # (Auto) Lander # (Auto) Eos # (Auto) Baso # (Auto) Absolute Nucleated RBC Nucleated RBC % Manual Slide Review Platelet Estimate Platelet Morphology RBC Morph Micro Appear Sodium Potassium Chloride Carbon Dioxide Anion Gap BUN Creatinine Estimated GFR (MDRD) Glucose Calcium Magnesium Total Bilirubin AST ALT Alkaline Phosphatase Troponin I High Sens B-Natriuretic Peptide 223 H Total Protein Albumin Globulin Albumin/Globulin Ratio Lipase Nasal Adenovirus (PCR) NOT DETECTED Nasal B. parapertussis DNA (PCR) NOT DETECTED Nasal Coronavir 229E PCR NOT DETECTED Nasal Coronavir HKU1 PCR NOT DETECTED Nasal Coronavir NL63 PCR NOT DETECTED Nasal Coronavir OC43 PCR NOT DETECTED Nasal Enterovir/Rhinovir PCR NOT DETECTED Nasal Influenza B PCR NOT DETECTED Nasal Influenza A PCR NOT DETECTED Nasal Parainfluen 1 PCR NOT DETECTED Nasal Parainfluen 2 PCR NOT DETECTED Nasal Parainfluen 3 PCR NOT DETECTED Nasal Parainfluen 4 PCR NOT DETECTED Nasal RSV (PCR) NOT DETECTED Nasal B.pertussis DNA PCR NOT DETECTED Nasal C.pneumoniae (PCR) NOT DETECTED Siddharth Human Metapneumo PCR NOT DETECTED Nasal M.pneumoniae (PCR) NOT DETECTED Nasal SARS-CoV-2 (PCR) NOT DETECTED - Rads (name of study) chest xray Radiology: Prelim report reviewed (prior left lobectomy comparable to prior. Right lung with interstitial markings c/w infection versus vascular congestion. ), See rad report PD MEDICAL DECISION MAKING - ED course Complexity details: reviewed results (Chest x-ray could be consistent with some pulmonary edema or interstitial infection as well. He did have some improvement with increased oxygen flow and nebulizer was able to be decreased to nasal cannula again. We will treat as both CHF and COPD for now.), re-evaluated patient, considered differential (He does have some wheezing and history of lung COPD and inhalers at home. Prior left lung cancer so decreased lung capacity and any problem with his breathing would have a larger impact. Some history of CHF as well.), d/w patient ED course: Significantly low oxygenation despite nasal cannula on arrival. He has improved with nebulizer and higher flow for short time. He clearly states DNR/DNI preference. He is amenable to medications and nebulizers. His mentation was a bit confused at first and improved with improved oxygenation. I feel he does need hospitalization for ongoing treatment and evaluation. His EKG is suggestive of possible atrial flutter. This may be compounding some CHF. He states he would not want any interventional cardiology. As such I feel he can be treated here at our facility. Departure - Departure Disposition: 66 [facility] DC/Xfer Clinical Impression: Hypoxia, Pulmonary congestion, History of lung cancer Dyspnea Qualifiers: Dyspnea type: shortness of breath Qualified Code(s): R06.02 - Shortness of breath CHF (congestive heart failure) Qualifiers: Heart failure type: unspecified Heart failure chronicity: acute on chronic Qualified Code(s): I50.9 - Heart failure, unspecified Condition: Stable Record reviewed to determine appropriate education?: Yes Discharge Date/Time: 08/12/20 01:12
[2020-08-11 23:40] LABS: C. PNEUMONIAE- RESP PCR PANEL NOT DETECTED
[2020-08-11] MEDS ORDERED: FUROSEMIDE 20 MG/2 ML VIAL IVP STA (23:44)
[2020-08-11] MEDS ORDERED: METOPROLOL 5 MG/5 ML VIAL IVP STA (23:44)
[2020-08-12] MEDS ORDERED: MORPHINE 2 MG/ML CARPUJECT IVP PRN (00:05)
[2020-08-12] MEDS ORDERED: ONDANSETRON 4 MG/2 ML VIAL IVP PRN (00:05)
[2020-08-12] MEDS ORDERED: SODIUM CHLORIDE FLUSH 0.9% 10 ML SYRINGE IVP PRN (00:05)
[2020-08-12] MEDS ORDERED: ALBUTEROL NEB 2.5 MG/3 ML INH PRN (00:11)
[2020-08-12] MEDS ORDERED: METOPROLOL TARTRATE 25 MG TABLET PO SCH ×2 (01:00→09:00)
[2020-08-12] MEDS ORDERED: diazePAM 5 MG TABLET PO PRN (01:07)
[2020-08-12] MEDS: SODIUM CHLORIDE FLUSH 0.9% 10 ML SYRINGE IVP SCH ×3 (01:19→17:31)
[2020-08-12] MEDS: ASPIRIN EC 81 MG TABLET PO SCH ×2 (01:19→09:13)
--- NOTE | 2020-08-12 02:32 | HISTORY & PHYSICAL EXAMINATION ---
DATE OF SERVICE: 08/12/2020 Physician: Marcella Smith MD Please note, this patient presented to the ER overnight on 08/11/2020; however, he was admitted under the medical service after midnight; therefore, the admission date is 08/12/2020. CHIEF COMPLAINT: Shortness of breath. HISTORY OF PRESENT ILLNESS: Patient is a 69-year-old white male with multiple past medical problems including chronic oxygen-dependent respiratory failure with history of stage IV non-small cell lung cancer, status post chemoradiation therapy and status post left lobectomy. He also has history of diastolic heart failure, prostate cancer, and dissecting type B thoracoabdominal aneurysm, for which he was not a surgical candidate. In the past medical record, it is documented that the patient did not wish aggressive interventions. He uses oxygen at home at about 2 liters. He also uses small volume nebulizers and requires assistance from a friend who lives with him. It seems that recently his function had been declining. Besides all his above-mentioned medical problems, he also has history of chronic back pain with back surgeries following spine injury. The patient felt that his life quality has been declining; he has been undergoing steady functional decline. Therefore, he started to entertain the idea of assisted suicide and he mentioned that to me when I talked to him in the ER. He told me actually he came to the hospital to discuss the treatment according to "Dr. Bhatia." Most of our conversation was about this patient's wishes and level of care and goal of care issues. We extensively discussed that he would not wish any aggressive intervention. His primary goal would be to be as comfortable as he could be at home. He did request hospice care. Regarding the circumstances leading to ER visit, the patient developed gradually worsening dyspnea over the past week. He used small volume nebulizer with not much relief and he increased his oxygen flow to about 4 liters nasal cannula, which also did not help. He was wheezing. Upon presentation, his oxygen saturation was about 60%; on oxygen at about 4 liters, it was 80%. Chest x-ray showed postoperative changes on the left side consistent with prior lobectomy and interstitial prominence, which was read as CHF versus infection. Additional evaluation included an EKG, which showed abnormal ST segments consistent with ischemic change, but no obvious ST elevation, questionable atrial fibrillation versus sinus tachycardia. Troponin was elevated at 0.4 and BNP was elevated compared to prior baseline as well. The patient received small volume nebulizers, steroid, antibiotic and supportive care during the ER stay after which he improved and he could talk to me in short sentences. ADVANCED CARE PLANNING DISCUSSION/GOALS OF CARE: The patient clearly stated that he would wish to be treated according to comfort care. He does not want transfer to higher level of care for acute coronary syndrome or further cardiac workup. He would not want any procedure. He does not want frequent blood work and does not wish to be monitored on telemetry. He accepts medications which are relatively easy to take, however, would not want aggressive or even semi aggressive measures. He asked to request social work to assist him in getting home as soon as possible and he requested hospice consult. Accordingly, he is admitted under comfort-focused care, with some medications which will be given for COPD, bronchitis and acute coronary syndrome. PAST MEDICAL HISTORY 1. Stage IV lung cancer, status post left-sided lobectomy, status post chemo and radiation therapy with complication of radiation pneumonitis. 2. Diastolic heart failure. 3. Oxygen-dependent chronic respiratory failure/multifactorial. 4. [place] type B thoracic aortic aneurysm, evaluated by vascular surgery, was deemed not a candidate for intervention. 5. Chronic obstructive pulmonary disease. 6. History of pneumonia. 7. Dyslipidemia. 8. Chronic back pain/on opiate. 9. Anxiety/depression. 10. Hypertension. 11. Prostate cancer, status post radical prostatectomy. OUTPATIENT MEDICATIONS: Reviewed per electronic medical record. SOCIAL HISTORY: The patient lives in his own home and he has a lady friend who lives with him and assists him with all activities of daily living. He used to be a smoker, but stopped several years ago. FAMILY HISTORY: Reviewed, noncontributory. REVIEW OF SYSTEMS: Please see pertinent positives listed above at history of present illness. In addition, the patient reported being weak with declining function. He had difficulty with minimal physical activity, had chronic pain and discomfort most times. 12-point review was completed, there were no additional symptoms. PHYSICAL EXAMINATION VITAL SIGNS: Oxygen saturation 60% on room air, 80% on 4 liters oxygen. Blood pressure 120/60, heart rate between 90 and 100, respiratory rate 30, temperature 36.5 Celsius. GENERAL: The patient is a well-developed, acutely and chronically ill-appearing male who could speak only in short sentences, had to stop several times to catch his breath. PSYCHIATRIC: Cooperative, pleasant to talk to. Lethargic, but easily arousable. NEUROLOGIC: Lethargic, but oriented. Provides reasonably good history. Can hold a conversation. Nonfocal. LYMPHATIC: No significant edema. RESPIRATORY: Decreased air entry with increased work of breathing. CARDIOVASCULAR: S1, S2 at the time of my exam, the rate was regular. I could not hear a murmur in the setting of transmitted airway sounds. ABDOMEN: Nondistended, benign, nontender. Bowel tones are hypoactive. SKIN: With pallor. No jaundice. MUSCULOSKELETAL: Asymmetric chest with left surgical scar visible above the thorax. ASSESSMENT AND PLAN: Patient is a 69-year-old male who is getting admitted with acute on chronic hypoxic and hypercapnic respiratory failure secondary to multifactorial etiologies including chronic obstructive pulmonary disease, congestive heart failure, acute coronary syndrome and bronchitis/possibly pneumonia. I had detailed discussion with this patient about goals of care, level of care, and he would like to be treated according to comfort-focused care. He agreed to get medications that might make acute coronary syndrome, COPD and bronchitis better/easier to tolerate. He agreed to get antibiotic, beta-nelly and steroid. However, considering that further workup or monitoring would not have therapeutic consequence or benefit, we will not order telemetry, blood work or any further monitoring or therapy. We will request social work and hospice for discharge planning; and in the meantime, we will continue supportive care. ATTESTATION: The patient is getting admitted acutely ill and he meets inpatient criteria with the diagnosis of acute on chronic respiratory failure and ACS. He would require more than 2 midnights hospital stay to stabilize. The reasonable expectation is that he will discharge in less than 96 hours. Notably, as he is admitted on comfort care, he might discharge sooner if hospice arrangements can be made to transition him to safe discharge and continued outpatient care. The time spent in his care was 70 minutes. TD: 08/12/2020 01:45 RAQUEL
[2020-08-12] MEDS ORDERED: methylPREDNISolone SUCCINATE 40 MG/ML VIAL IVP SCH (06:00)
[2020-08-12] MEDS: PANTOPRAZOLE 40 MG TABLET PO SCH (06:04)
[2020-08-12] MEDS: IPRATROPIUM/ALBUTEROL 3 ML NEB INH SCH ×4 (07:56→22:00)
--- NOTE | 2020-08-12 08:42 | XRAY Report ---
PROCEDURE: Chest 1 View X-Ray INDICATIONS: dyspnea increased few days TECHNIQUE: One view of the chest was acquired. COMPARISON: 02/19/1990 FINDINGS: Surgical changes and devices: None. Lungs and pleura: No pleural effusions or pneumothorax. There are scattered ill-defined groundglass opacities diffusely Elevation of the left hemidiaphragm and left-sided volume loss as before Mediastinum: Mediastinal contours appear normal. Heart size is normal. Bones and chest wall: No suspicious bony lesions. Overlying soft tissues appear unremarkable. IMPRESSION: Scattered atelectasis and postsurgical changes. Diffuse ill-defined and groundglass opacity, possibly edema versus atypical infection. Findings are concordant with the preliminary study interpretation p rovided at the time of the study. Reviewed by: Justice Grimaldo MD on 08/12/2020 8:41 AM PST Approved by: Justice Grimaldo MD on 08/12/2020 8:41 AM PST Station ID: [id number]
[2020-08-12] MEDS: METOPROLOL TARTRATE 25 MG TABLET PO SCH ×2 (09:12→21:16)
[2020-08-12] MEDS: predniSONE 20 MG TABLET PO SCH (09:13)
--- NOTE | 2020-08-12 15:24 | PROVIDER PROGRESS NOTE ---
Subjective - Prog Note Date Prog Note Date: 08/12/20 - Subjective Pt reports feeling: No change Subjective: IN budget specialist patient was Clearly. pt clearly request Hospice care. re- assessment to pt, pt became confused. I called patient's DPOA, Mr. Gaurav Dimas, he agree pt need hospice care, and report pt did have on and off confused in the home. Dr. Rg already consulted with hospice care. Hospice care Dr. Marquez came to assess pt, pt is confused, could not answer questions. Dr. Marquez believed pt is qualified for hospice care, but pt need disposition plan and location for pt's hospice care, hospice care team can not watch pt 24 hours based on pt's confused. consulted with social media director for d/c disposition. Current Medications - Current Medications Current Medications: Active Medications Acetaminophen (Acetaminophen 325 Mg Tablet) 650 mg PO Q4HR PRN PRN Reason: Pain 1 to 4 Albuterol (Albuterol Neb 2.5 Mg/3 Ml) 2.5 mg INH RTQ4H PRN PRN Reason: Wheezing Albuterol/Ipratropium (Ipratropium/Albuterol 3 Ml Neb) 3 ml INH RTQID [facility] Last Admin: 08/13/20 10:48 Dose: Not Given Documented by: Aspirin (Aspirin Ec 81 Mg Tablet) 81 mg PO DAILY [facility] Last Admin: 08/13/20 08:41 Dose: 81 mg Documented by: Azithromycin (Azithromycin 250 Mg Tablet) 250 mg PO DAILY [facility] Last Admin: 08/13/20 08:42 Dose: 250 mg Documented by: Cefuroxime Axetil (Cefuroxime Axetil 250 Mg Tablet) 500 mg PO BID [facility] Stop: 08/19/20 08:59 Last Admin: 08/13/20 08:40 Dose: 500 mg Documented by: Diazepam (Diazepam 5 Mg Tablet) 5 mg PO QPM PRN PRN Reason: Anxiety Furosemide (Furosemide 40 Mg Tablet) 40 mg PO Q48H [facility] Last Admin: 08/13/20 10:45 Dose: 40 mg Documented by: Metoprolol Tartrate (Metoprolol Tartrate 25 Mg Tablet) 50 mg PO BID [facility] Last Admin: 08/13/20 08:38 Dose: 50 mg Documented by: Morphine Sulfate (Morphine 2 Mg/Ml Carpuject) 2 mg IVP Q2HR PRN PRN Reason: Pain 8 to 10 Ondansetron HCl (Ondansetron 4 Mg/2 Ml Vial) 4 mg IVP Q6HR PRN PRN Reason: Nausea / Vomiting Oxycodone HCl (Oxycodone 5 Mg Tablet) 5 mg PO Q4HR PRN PRN Reason: Pain 5 to 7 Last Admin: 08/13/20 08:40 Dose: 5 mg Documented by: Pantoprazole Sodium (Pantoprazole 40 Mg Tablet) 40 mg PO QDAC [facility] Last Admin: 08/13/20 06:09 Dose: 40 mg Documented by: Polyethylene Glycol (Polyethylene Glycol 3350 17 Gm Packet) 17 gm PO DAILY [facility] Last Admin: 08/13/20 08:42 Dose: 17 gm Documented by: Prednisone (Prednisone 20 Mg Tablet) 20 mg PO DAILYWM [facility] Last Admin: 08/13/20 08:40 Dose: 20 mg Documented by: Sodium Chloride (Sodium Chloride Flush 0.9% 10 Ml Syringe) 10 ml IVP PRN PRN PRN Reason: NEEDED PER PROVIDER ORDERS Sodium Chloride (Sodium Chloride Flush 0.9% 10 Ml Syringe) 10 ml IVP 0100,0900,1700 [facility] Last Admin: 08/13/20 10:45 Dose: 10 ml Documented by: Labetalol [Trandate] 200 mg PO TID 02/27/13 Gabapentin [Neurontin] 900 mg PO 0800,1600 05/16/16 Sennosides/Docusate Sodium [Senna-S Tablet] 3 tab PO BID 05/17/16 Acetaminophen 650 mg PO TID 02/16/19 Amlodipine Besylate 2.5 mg PO DAILY 02/16/19 Gabapentin 1,200 mg PO QPM 02/16/19 Ipratropium/Albuterol [Duoneb] 3 ml INH QID 02/16/19 diazePAM [Diazepam] 5 mg PO 0800,1600 02/16/19 diazePAM [Diazepam] 10 mg PO QPM 02/16/19 Furosemide [Lasix] 60 mg PO DAILY 08/12/20 Objective - Vital Signs/Intake & Output Vital Signs: Vital Signs x48h Temp Pulse Pulse Resp BP Pulse Ox 08/12/20 14:42 92 08/12/20 11:21 90 18 08/12/20 07:57 90 20 08/12/20 07:44 37.7 C 102 H 20 124/70 96 Intake & Output: Intake & Output 08/09/20 08/10/20 08/11/20 08/12/20 23:59 23:59 23:59 23:59 Intake Total 980 Output Total 975 Balance 5 - Objective General Appearance: positive: No acute distress, Alert. negative: Lethargic Eyes Bilateral: positive: Normal inspection, PERRL, No lid inflammation ENT: positive: ENT inspection nml, No signs of dehydration. negative: Purulent nasal drainage Neck: positive: Nml inspection, Trachea midline. negative: Thyromegaly, Tracheal deviation Respiratory: positive: Chest non-tender, Rhonchi. negative: Breath sounds nml, Wheezes, Rales Cardiovascular: positive: Irregularly irregular. negative: Tachycardia, Bradycardia, Systolic murmur, Diastolic murmur Peripheral Pulses: 2+ Radial (R), 2+ Radial (L) Abdomen: positive: Non-tender, Nml bowel sounds, No distention. negative: Tend erness Back: positive: Nml inspection Skin: positive: No rash, Warm, Dry. negative: Diaphoresis, Pallor Extremities: positive: Non-tender, Nml appearance. negative: Calf tenderness Neurologic/Psychiatric: positive: Sensation nml. negative: Weakness, Sensory loss, Facial droop, Slurred/abnml speech - Lab Results Fish Bones: 08/11/20 22:17 08/11/20 22:17 Other Labs: Lab Results x24hrs 08/11/20 08/11/20 08/11/20 Range/Units 22:24 22:17 22:17 WBC (4.8-10.8) x10^3/uL RBC (4.70-6.10) 10^6/uL Hgb (14.0-18.0) g/dL Hct (42.0-52.0) % MCV (80.0-94.0) fL MCH (27.0-31.0) pg MCHC (32.0-36.0) g/dL RDW (12.0-15.0) % Plt Count (130-450) 10^3/uL MPV (7.4-11.4) fL Neut # (Auto) (1.5-6.6) 10^3/uL Lymph # (Auto) (1.5-3.5) 10^3/uL [place] # (Auto) (0.0-1.0) 10^3/uL Eos # (Auto) (0.0-0.7) 10^3/uL Baso # (Auto) (0.0-0.1) 10^3/uL Absolute Nucleated RBC x10^3/uL Nucleated RBC % /100WBC Manual Slide Review Platelet Estimate (NORMAL) Platelet Morphology (NORMAL) RBC Morph Micro Appear (NORMAL) Sodium (135-145) mmol/L Potassium (3.5-5.0) mmol/L Chloride (101-111) mmol/L Carbon Dioxide (21-32) mmol/L Anion Gap (6-13) BUN (6-20) mg/dL Creatinine (0.6-1.2) mg/dL Estimated GFR (MDRD) (>89) Glucose (70-100) mg/dL Calcium (8.5-10.3) mg/dL Magnesium (1.7-2.8) mg/dL Total Bilirubin (0.2-1.0) mg/dL AST (10-42) IU/L ALT (10-60) IU/L Alkaline Phosphatase (42-121) IU/L Troponin I High Sens 40.6 H* (2.3-19.7) ng/L B-Natriuretic Peptide 223 H (5-100) pg/mL Total Protein (6.7-8.2) g/dL Albumin (3.2-5.5) g/dL Globulin (2.1-4.2) g/dL Albumin/Globulin Ratio (1.0-2.2) Lipase (22-51) U/L Nasal Adenovirus (PCR) NOT DETECTED Nasal B. parapertussis DNA (PCR) NOT DETECTED Nasal Coronavir 229E PCR NOT DETECTED Nasal Coronavir HKU1 PCR NOT DETECTED Nasal Coronavir NL63 PCR NOT DETECTED Nasal Coronavir OC43 PCR NOT DETECTED Nasal Enterovir/Rhinovir PCR NOT DETECTED Nasal Influenza B PCR NOT DETECTED Nasal Influenza A PCR NOT DETECTED Nasal Parainfluen 1 PCR NOT DETECTED Nasal Parainfluen 2 PCR NOT DETECTED Nasal Parainfluen 3 PCR NOT DETECTED Nasal Parainfluen 4 PCR NOT DETECTED Nasal RSV (PCR) NOT DETECTED Nasal B.pertussis DNA PCR NOT DETECTED Nasal C.pneumoniae (PCR) NOT DETECTED Siddharth Human Metapneumo PCR NOT DETECTED Nasal M.pneumoniae (PCR) NOT DETECTED Nasal SARS-CoV-2 (PCR) NOT DETECTED 08/11/20 08/11/20 Range/Units 22:17 22:17 WBC 7.5 (4.8-10.8) x10^3/uL RBC 3.27 L (4.70-6.10) 10^6/uL Hgb 7.9 L (14.0-18.0) g/dL Hct 31.1 L (42.0-52.0) % MCV 95.1 H (80.0-94.0) fL MCH 24.2 L (27.0-31.0) pg MCHC 25.4 L (32.0-36.0) g/dL RDW 16.2 H (12.0-15.0) % Plt Count 172 (130-450) 10^3/uL MPV 10.6 (7.4-11.4) fL Neut # (Auto) 5.8 (1.5-6.6) 10^3/uL Lymph # (Auto) 0.6 L (1.5-3.5) 10^3/uL [place] # (Auto) 1.0 (0.0-1.0) 10^3/uL Eos # (Auto) 0.1 (0.0-0.7) 10^3/uL Baso # (Auto) 0.0 (0.0-0.1) 10^3/uL Absolute Nucleated RBC 0.00 x10^3/uL Nucleated RBC % 0.0 /100WBC Manual Slide Review Indicated Platelet Estimate NORMAL (130-450,000) (NORMAL) Platelet Morphology 1+ GIANT PLATELETS (NORMAL) RBC Morph Micro Appear 1+ POIKILOCYTOSIS (NORMAL) Sodium 143 (135-145) mmol/L Potassium 3.8 (3.5-5.0) mmol/L Chloride 76 L* (101-111) mmol/L Carbon Dioxide > 45 H* (21-32) mmol/L Anion Gap 22.0 H (6-13) BUN 21 H (6-20) mg/dL Creatinine 0.8 (0.6-1.2) mg/dL Estimated GFR (MDRD) 96 (>89) Glucose 138 H (70-100) mg/dL Calcium 9.2 (8.5-10.3) mg/dL Magnesium 1.8 (1.7-2.8) mg/dL Total Bilirubin 0.9 (0.2-1.0) mg/dL AST 19 (10-42) IU/L ALT 11 (10-60) IU/L Alkaline Phosphatase 77 (42-121) IU/L Troponin I High Sens (2.3-19.7) ng/L B-Natriuretic Peptide (5-100) pg/mL Total Protein 6.9 (6.7-8.2) g/dL Albumin 3.6 (3.2-5.5) g/dL Globulin 3.3 (2.1-4.2) g/dL Albumin/Globulin Ratio 1.1 (1.0-2.2) Lipase 39 (22-51) U/L Nasal Adenovirus (PCR) Nasal B. parapertussis DNA (PCR) Nasal Coronavir 229E PCR Nasal Coronavir HKU1 PCR Nasal Coronavir NL63 PCR Nasal Coronavir OC43 PCR Nasal Enterovir/Rhinovir PCR Nasal Influenza B PCR Nasal Influenza A PCR Nasal Parainfluen 1 PCR Nasal Parainfluen 2 PCR Nasal Parainfluen 3 PCR Nasal Parainfluen 4 PCR Nasal RSV (PCR) Nasal B.pertussis DNA PCR Nasal C.pneumoniae (PCR) Siddharth Human Metapneumo PCR Nasal M.pneumoniae (PCR) Nasal SARS-CoV-2 (PCR) ABX Reporting Has patient been on IV antibiotics over the past 48 hours?: Yes Assessment/Plan - Problem List (1) Encounter for hospice care Impression: Patient's DPOA, patient himself all request for hospice care. Hospice care was consulted and Dr. Marquez believe patient qualify for the hospice care. Patient has a history of lung cancer stage IV, prostate cancer,Dissection aneurysm of thoracic aorta, diastolic heart failure. consult with social work for discharge disposition, then follow-up with hospice care (2) Acute on chronic respiratory failure with hypoxia Impression: Patient take oxygen in the home, here patient take oxygen and have 92% saturation on 2 L oxygen. Patient has history of stage IV lung cancer, COPD, diastolic heart failure, and atypical pneumonia, all those facts could contribute to patient's acute on chronic respiratory failure with hypoxia. Since patient wanted to have treatment in the hospital. We will continue supplemental oxygen for patient, continue give patient antibiotics to treat for his Atopica pneumonia, continue DuoNeb and PO steroid to treat the patient COPD. (3) Atypical pneumonia Impression: Patient has acute on chronic hypoxia, with cough, x-ray show patient might have Atopica pneumonia and patient need oxygen support. Patient wanted to have treatment in the hospital. We will treat the patient with antibiotics, Supplemental oxygen as needed (4) Malignant neoplasm of left lung stage 4 Impression: Patient has a stage IV lung cancer, now patient has no treatment, and at this point patient want to have hospice care, we will continue consult with hospice t eam and social work (5) Dissecting aneurysm of thoracic aorta, [place] type B Impression: Patient has no treatment for his dissecting aneurysm due to patient complicated medical history and lung cancer. At this point we focused the patient on comfortable measure and continue hospice care (6) Prostate cancer Impression: Patient has history of prostate cancer, he has no treatment now, we will follow up with the patient's wish to have hospice care (7) Diastolic heart failure Impression: Last ECHO indicated patient had reserved EF, but has diastolic heart failure with RVSP 51 mmHg. At this point we will continue patient home medication, follow-up with hospice care (8) COPD (chronic obstructive pulmonary disease) Impression: Patient has history of COPD, patient takes oxygen in the home. We will continue patient DuoNeb treatment as needed, steroid by the mouth, supplement oxygen as needed (9) Chronic back pain Impression: Patient has a history of chronic back pain, we will continue pain control (10) HTN (hypertension) Impression: Patient's blood pressure is stable, will resume patient home medication.
[2020-08-12] MEDS ORDERED: cefTRIAXone 2 GM in SODIUM CHLORIDE 0.9% MINIBAG 100 ML IV SCH (18:00)
[2020-08-13] MEDS: SODIUM CHLORIDE FLUSH 0.9% 10 ML SYRINGE IVP SCH ×3 (01:26→19:17)
[2020-08-13] MEDS: PANTOPRAZOLE 40 MG TABLET PO SCH (06:09)
[2020-08-13] MEDS: METOPROLOL TARTRATE 25 MG TABLET PO SCH ×2 (08:38→21:08)
[2020-08-13] MEDS: predniSONE 20 MG TABLET PO SCH (08:40)
[2020-08-13] MEDS: oxyCODONE 5 MG TABLET PO PRN ×2 (08:40→21:15)
[2020-08-13] MEDS: ASPIRIN EC 81 MG TABLET PO SCH (08:41)
[2020-08-13] MEDS: polyethylene glycoL 3350 17 GM PACKET PO SCH (08:42)
[2020-08-13] MEDS: AZITHROMYCIN 250 MG TABLET PO SCH (08:42)
[2020-08-13] MEDS ORDERED: FUROSEMIDE 40 MG TABLET PO SCH (09:00)
[2020-08-13] MEDS: IPRATROPIUM/ALBUTEROL 3 ML NEB INH SCH ×3 (10:38→12:50)
--- NOTE | 2020-08-13 12:48 | PROVIDER PROGRESS NOTE ---
Assessment/Plan - Problem List (1) Encounter for hospice care Assessment/Plan: 08/13 Patient is clearly today, he reported he cannot afford to be discharged to half-way or SNF. He would like to go home with hospice care. I talked with social work and director of social services will try to help arrange caregiver for patient. Patient's DPOA, patient himself all request for hospice care. Hospice care was consulted and Dr. Marquez believe patient qualify for the hospice care. Patient has a history of lung cancer stage IV, prostate cancer,Dissection aneurysm of thoracic aorta, diastolic heart failure. consult with social work for discharge disposition, then follow-up with hospice care (2) Acute on chronic respiratory failure with hypoxia Impression: 08/13, As his baseline he needed 2 L oxygen support, His sats is 95%. He does not have obvious respiratory distress. Continue antibiotics, continue steroids, continue breathing treatment Patient take oxygen in the home, here patient take oxygen and have 92% saturation on 2 L oxygen. Patient has history of stage IV lung cancer, COPD, diastolic heart failure, and atypical pneumonia, all those facts could contribute to patient's acute on chronic respiratory failure with hypoxia. Since patient wanted to have treatment in the hospital. We will continue supplemental oxygen for patient, continue give patient antibiotics to treat for his Atopica pneumonia, continue DuoNeb and PO steroid to treat the patient COPD. (3) Atypical pneumonia Impression: 08/13 Nurse report pt's intravenous port is off. After discussed with patient, patient agreed to give p.o. antibiotics to treat his Atypical pneumonia Patient has acute on chronic hypoxia, with cough, x-ray show patient might have Atopica pneumonia and patient need oxygen support. Patient wanted to have treatment in the hospital. We will treat the patient with antibiotics, Supplemental oxygen as needed (4) Malignant neoplasm of left lung stage 4 Impression: Patient has a stage IV lung cancer, now patient has no treatment, and at this point patient want to have hospice care, we will continue consult with hospice team and social work (5) Dissecting aneurysm of thoracic aorta, [place] type B Impression: Patient has no treatment for his dissecting aneurysm due to patient complicated medical history and lung cancer. At this point we focused the patient on comfortable measure and continue hospice care (6) Prostate cancer Impression: Patient has history of prostate cancer, he has no treatment now, we will follow up with the patient's wish to have hospice care (7) Diastolic heart failure Impression: Last ECHO indicated patient had reserved EF, but has diastolic heart failure with RVSP 51 mmHg. At this point we will continue patient home medication, f ollow-up with hospice care (8) COPD (chronic obstructive pulmonary disease) Impression: Patient has history of COPD, patient takes oxygen in the home. We will continue patient DuoNeb treatment as needed, steroid by the mouth, supplement oxygen as needed (9) Chronic back pain Impression: Patient has a history of chronic back pain, we will continue pain control (10) HTN (hypertension) Impression: Patient's blood pressure is stable, will resume patient home medication. - Current Meds Current Meds: Current Medications Generic Name Dose Route Start Last Admin Trade Name Freq PRN Reason Stop Dose Admin Albuterol/Ipratropium 3 ml 08/12/20 07:00 08/13/20 10:48 Ipratropium/Albuterol 3 Ml Neb INH Not Given RTQID [facility] Aspirin 81 mg 08/12/20 00:14 08/13/20 08:41 Aspirin Ec 81 Mg Tablet PO 81 mg DAILY [facility] Administration Azithromycin 250 mg 08/13/20 09:00 08/13/20 08:42 Azithromycin 250 Mg Tablet PO 250 mg DAILY [facility] Administration Cefuroxime Axetil 500 mg 08/13/20 09:00 08/13/20 08:40 Cefuroxime Axetil 250 Mg Tablet PO 08/19/20 08:59 500 mg BID [facility] Administration Furosemide 40 mg 08/13/20 09:00 08/13/20 10:45 Furosemide 40 Mg Tablet PO 40 mg Q48H [facility] Administration Metoprolol Tartrate 50 mg 08/12/20 09:00 08/13/20 08:38 Metoprolol Tartrate 25 Mg Tablet PO 50 mg BID [facility] Administration Oxycodone HCl 5 mg 08/12/20 00:05 08/13/20 08:40 Oxycodone 5 Mg Tablet PO 5 mg Q4HR PRN Administration Pain 5 to 7 Pantoprazole Sodium 40 mg 08/12/20 07:00 08/13/20 06:09 Pantoprazole 40 Mg Tablet PO 40 mg QDAC [facility] Administration Polyethylene Glycol 17 gm 08/13/20 09:00 08/13/20 08:42 Polyethylene Glycol 3350 17 Gm Packet PO 17 gm DAILY [facility] Administration Prednisone 20 mg 08/12/20 08:00 08/13/20 08:40 Prednisone 20 Mg Tablet PO 20 mg DAILYWM [facility] Administration Sodium Chloride 10 ml 08/12/20 01:00 08/13/20 10:45 Sodium Chloride Flush 0.9% 10 Ml Syringe IVP 10 ml 0100,0900,1700 [facility] Administration - Lab Result Fish Bone Diagrams: 08/11/20 22:17 08/11/20 22:17 - Additional Planning My Orders: My Active Orders 08/13/20 09:00 Azithromycin [Zithromax] 250 mg PO DAILY cefUROXime axetiL [Ceftin] 500 mg PO BID Subjective - Subjective Patient Reports: Feeling Better Objective Vital Signs: Vital Signs - 24 hr 08/12/20 08/12/20 08/12/20 14:42 17:50 21:16 Temperature 37.7 C Heart Rate 90 Heart Rate [ Brachial] Respiratory 18 Rate Blood Pressure 128/76 Blood Pressure [Right Brachial artery] O2 Saturation 92 92 08/12/20 08/13/20 22:00 08:24 Temperature 36.7 C Heart Rate 87 Heart Rate [ 80 Brachial] Respiratory 20 16 Rate Blood Pressure Blood Pressure 125/59 L [Right Brachial artery] O2 Saturation 95 Oxygen O2 Source Nasal cannula Oxygen Flow Rate 4 I&O (Last 24 Hrs): Intake and Output Totals x24h 08/11/20 08/12/20 08/13/20 23:59 23:59 23:59 Intake Total 1380 600 Output Total 1500 1825 Balance -120 -1225 General: Alert, Oriented x3, No acute distress HEENT: Atraumatic Neck: Supple Lymphatic: no adenopathy Neuro: Alert, Non Focal, Oriented Times 3 Cardiovascular: Regular rate, Normal S1, Normal S2 Respiratory: Chest non-tender, No respiratory distress, Breath sounds nml Abdomen: Normal bowel sounds, Soft, No tenderness Extremities: Normal pulses Skin: No breakdown - Results Results: Laboratory Results WBC 7.5 x10^3/uL (4.8-10.8) 08/11/20 22:17 RBC 3.27 10^6/uL (4.70-6.10) L 08/11/20 22:17 Hgb 7.9 g/dL (14.0-18.0) L 08/11/20 22:17 Hct 31.1 % (42.0-52.0) L 08/11/20 22:17 MCV 95.1 fL (80.0-94.0) H 08/11/20 22:17 MCH 24.2 pg (27.0-31.0) L 08/11/20 22:17 MCHC 25.4 g/dL (32.0-36.0) L 08/11/20 22:17 RDW 16.2 % (12.0-15.0) H 08/11/20 22:17 Plt Count 172 10^3/uL (130-450) 08/11/20 22:17 MPV 10.6 fL (7.4-11.4) 08/11/20 22:17 Neut # (Auto) 5.8 10^3/uL (1.5-6.6) 08/11/20 22:17 Lymph # (Auto) 0.6 10^3/uL (1.5-3.5) L 08/11/20 22:17 [place] # (Auto) 1.0 10^3/uL (0.0-1.0) 08/11/20 22:17 Eos # (Auto) 0.1 10^3/uL (0.0-0.7) 08/11/20 22:17 Baso # (Auto) 0.0 10^3/uL (0.0-0.1) 08/11/20 22:17 Absolute Nucleated RBC 0.00 x10^3/uL 08/11/20 22:17 Nucleated RBC % 0.0 /100WBC 08/11/20 22:17 Manual Slide Review Indicated 08/11/20 22:17 Platelet Estimate NORMAL (130-450,000) (NORMAL) 08/11/20 22:17 Platelet Morphology 1+ GIANT PLATELETS (NORMAL) 08/11/20 22:17 RBC Morph Micro Appear 1+ ANISOCYTOSIS (NORMAL) 2+ HYPOCHROMASIA (NORMAL) 1+ POIKILOCYTOSIS (NORMAL) 08/11/20 22:17 RBC Morph Micro Appear 1+ ANISOCYTOSIS (NORMAL) 2+ HYPOCHROMASIA (NORMAL) 1+ POIKILOCYTOSIS (NORMAL) 08/11/20 22:17 RBC Morph Micro Appear 1+ ANISOCYTOSIS (NORMAL) 2+ HYPOCHROMASIA (NORMAL) 1+ POIKILOCYTOSIS (NORMAL) 08/11/20 22:17 Sodium 143 mmol/L (135-145) 08/11/20 22:17 Potassium 3.8 mmol/L (3.5-5.0) 08/11/20 22:17 Chloride 76 mmol/L (101-111) L* 08/11/20 22:17 Carbon Dioxide > 45 mmol/L (21-32) H* 08/11/20 22:17 Anion Gap 22.0 (6-13) H 08/11/20 22:17 BUN 21 mg/dL (6-20) H 08/11/20 22:17 Creatinine 0.8 mg/dL (0.6-1.2) 08/11/20 22:17 Estimated GFR (MDRD) 96 (>89) 08/11/20 22:17 Glucose 138 mg/dL (70-100) H 08/11/20 22:17 Calcium 9.2 mg/dL (8.5-10.3) 08/11/20 22:17 Magnesium 1.8 mg/dL (1.7-2.8) 08/11/20 22:17 Total Bilirubin 0.9 mg/dL (0.2-1.0) 08/11/20 22:17 AST 19 IU/L (10-42) 08/11/20 22:17 ALT 11 IU/L (10-60) 08/11/20 22:17 Alkaline Phosphatase 77 IU/L (42-121) 08/11/20 22:17 Troponin I High Sens 40.6 ng/L (2.3-19.7) H* 08/11/20 22:17 B-Natriuretic Peptide 223 pg/mL (5-100) H 08/11/20 22:17 Total Protein 6.9 g/dL (6.7-8.2) 08/11/20 22:17 Albumin 3.6 g/dL (3.2-5.5) 08/11/20 22:17 Globulin 3.3 g/dL (2.1-4.2) 08/11/20 22:17 Albumin/Globulin Ratio 1.1 (1.0-2.2) 08/11/20 22:17 Lipase 39 U/L (22-51) 08/11/20 22:17 Nasal Adenovirus (PCR) NOT DETECTED 08/11/20 22:24 Nasal B. parapertussis DNA (PCR) NOT DETECTED 08/11/20 22:24 Nasal Coronavir 229E PCR NOT DETECTED 08/11/20 22:24 Nasal Coronavir HKU1 PCR NOT DETECTED 08/11/20 22:24 Nasal Coronavir NL63 PCR NOT DETECTED 08/11/20 22:24 Nasal Coronavir OC43 PCR NOT DETECTED 08/11/20 22:24 Nasal Enterovir/Rhinovir PCR NOT DETECTED 08/11/20 22:24 Nasal Influenza B PCR NOT DETECTED 08/11/20 22:24 Nasal Influenza A PCR NOT DETECTED 08/11/20 22:24 Nasal Parainfluen 1 PCR NOT DETECTED 08/11/20 22:24 Nasal Parainfluen 2 PCR NOT DETECTED 08/11/20 22:24 Nasal Parainfluen 3 PCR NOT DETECTED 08/11/20 22:24 Nasal Parainfluen 4 PCR NOT DETECTED 08/11/20 22:24 Nasal RSV (PCR) NOT DETECTED 08/11/20 22:24 Nasal B.pertussis DNA PCR NOT DETECTED 08/11/20 22:24 Nasal C.pneumoniae (PCR) NOT DETECTED 08/11/20 22:24 Siddharth Human Metapneumo PCR NOT DETECTED 08/11/20 22:24 Nasal M.pneumoniae (PCR) NOT DETECTED 08/11/20 22:24 Nasal SARS-CoV-2 (PCR) NOT DETECTED 08/11/20 22:24 - Procedures Procedures: Procedures INSERTION OF INFUSION DEV INTO SUP VENA CAVA, PERC APPROACH (05/16/16) ABX Reporting Has patient been on IV antibiotics over the past 48 hours?: Yes Current Medications - Current Medications Current Medications: Active Medications Acetaminophen (Acetaminophen 325 Mg Tablet) 650 mg PO Q4HR PRN PRN Reason: Pain 1 to 4 Albuterol (Albuterol Neb 2.5 Mg/3 Ml) 2.5 mg INH RTQ4H PRN PRN Reason: Wheezing Albuterol/Ipratropium (Ipratropium/Albuterol 3 Ml Neb) 3 ml INH RTQID [facility] Last Admin: 08/13/20 12:50 Dose: 3 ml Documented by: Aspirin (Aspirin Ec 81 Mg Tablet) 81 mg PO DAILY [facility] Last Admin: 08/13/20 08:41 Dose: 81 mg Documented by: Azithromycin (Azithromycin 250 Mg Tablet) 250 mg PO DAILY [facility] Last Admin: 08/13/20 08:42 Dose: 250 mg Documented by: Cefuroxime Axetil (Cefuroxime Axetil 250 Mg Tablet) 500 mg PO BID [facility] Stop: 08/19/20 08:59 Last Admin: 08/13/20 08:40 Dose: 500 mg Documented by: Diazepam (Diazepam 5 Mg Tablet) 5 mg PO QPM PRN PRN Reason: Anxiety Furosemide (Furosemide 40 Mg Tablet) 40 mg PO Q48H [facility] Last Admin: 08/13/20 10:45 Dose: 40 mg Documented by: Metoprolol Tartrate (Metoprolol Tartrate 25 Mg Tablet) 50 mg PO BID [facility] Last Admin: 08/13/20 08:38 Dose: 50 mg Documented by: Morphine Sulfate (Morphine 2 Mg/Ml Carpuject) 2 mg IVP Q2HR PRN PRN Reason: Pain 8 to 10 Ondansetron HCl (Ondansetron 4 Mg/2 Ml Vial) 4 mg IVP Q6HR PRN PRN Reason: Nausea / Vomiting Oxycodone HCl (Oxycodone 5 Mg Tablet) 5 mg PO Q4HR PRN PRN Reason: Pain 5 to 7 Last Admin: 08/13/20 08:40 Dose: 5 mg Documented by: Pantoprazole Sodium (Pantoprazole 40 Mg Tablet) 40 mg PO QDAC [facility] Last Admin: 08/13/20 06:09 Dose: 40 mg Documented by: Polyethylene Glycol (Polyethylene Glycol 3350 17 Gm Packet) 17 gm PO DAILY [facility] Last Admin: 08/13/20 08:42 Dose: 17 gm Documented by: Prednisone (Prednisone 20 Mg Tablet) 20 mg PO DAILYWM [facility] Last Admin: 08/13/20 08:40 Dose: 20 mg Documented by: Sodium Chloride (Sodium Chloride Flush 0.9% 10 Ml Syringe) 10 ml IVP PRN PRN PRN Reason: NEEDED PER PROVIDER ORDERS Sodium Chloride (Sodium Chloride Flush 0.9% 10 Ml Syringe) 10 ml IVP 0100,0900,1700 [facility] Last Admin: 08/13/20 10:45 Dose: 10 ml Documented by: Labetalol [Trandate] 200 mg PO TID 02/27/13 Gabapentin [Neurontin] 900 mg PO 0800,1600 05/16/16 Sennosides/Docusate Sodium [Senna-S Tablet] 3 tab PO BID 05/17/16 Acetaminophen 650 mg PO TID 02/16/19 Amlodipine Besylate 2.5 mg PO DAILY 02/16/19 Gabapentin 1,200 mg PO QPM 02/16/19 Ipratropium/Albuterol [Duoneb] 3 ml INH QID 02/16/19 diazePAM [Diazepam] 5 mg PO 0800,1600 02/16/19 diazePAM [Diazepam] 10 mg PO QPM 02/16/19 Furosemide [Lasix] 60 mg PO DAILY 08/12/20
[2020-08-14] MEDS: SODIUM CHLORIDE FLUSH 0.9% 10 ML SYRINGE IVP SCH ×2 (03:36→09:02)
[2020-08-14] MEDS: PANTOPRAZOLE 40 MG TABLET PO SCH (05:41)
[2020-08-14] MEDS: IPRATROPIUM/ALBUTEROL 3 ML NEB INH SCH ×5 (06:46→16:34)
[2020-08-14] MEDS: oxyCODONE 5 MG TABLET PO PRN ×3 (08:59→17:17)
[2020-08-14] MEDS: AZITHROMYCIN 250 MG TABLET PO SCH (08:59)
[2020-08-14] MEDS: ASPIRIN EC 81 MG TABLET PO SCH (08:59)
[2020-08-14] MEDS: predniSONE 20 MG TABLET PO SCH (09:00)
[2020-08-14] MEDS: METOPROLOL TARTRATE 25 MG TABLET PO SCH (09:00)
[2020-08-14] MEDS: polyethylene glycoL 3350 17 GM PACKET PO SCH (09:02)
[2020-08-14] MEDS: ACETAMINOPHEN 325 MG TABLET PO PRN ×2 (12:33→17:16)
[2020-08-14 15:45] VITALS: BP 104/65
--- NOTE | 2020-08-14 16:19 | Discharge Plan ---
Discharge Plan Problem Reviewed?: Yes Disposition: 50 Hospice/Home DC/Xfer Condition: Poor Prescriptions: cefUROXime axetiL [Ceftin] 500 mg PO BID #10 tablet Morphine Sulfate [Morphine Sulf Oral (Roxanol)] 5 mg PO Q4H PRN #30 ml PRN Reason: Pain/Dyspnea Diet: Regular Activity Restrictions: Activity as Tolerated Shower Restrictions: No (fall precaution) Instruction Topics: Cefuroxime tablets, Hospice, Hospice Start, Hospice Pain Management, Hospice Dyspnea Care Health Concerns: hospice care Plan of Treatment: you want to treat your pneumonia, antibiotics Ceftin is prescribed for you, and pain medication Morphine is prescribed for you as well. molding utility worker confirmed with Your DPOA that the plan is for you to discharge to home with hospice being able to admit the middle part of next week with the condition that extra home care physical therapist support is hired to help you. Your DPOA reported that he wanted to watch you the next couple of days and see if you needs additional care and how much. molding utility worker provided your DPOA with the contact information to Hospice to coordinate admission and care of patient, advise you followup with hospice care as your wish. Care Goals: quality of life, and comfortable and hospice care Assessment: discussed with you the care plan, answered your questions, you understood and agreed. Additional Instructions or Follow Up instructions: you may followup with hospice care in the next week. Should your plan change or your symptoms return or worsen, you may present ER or call 911 for help. Follow-Up Care: Hospice No Smoking: If you smoke, Please STOP! Call for help. Follow-up with: Lisa Ross MD [Primary Care Provider] -
--- NOTE | 2020-08-14 16:41 | DISCHARGE SUMMARY ---
Discharge Summary Admit Date: 08/12/20 Discharge Date: 08/14/20 Discharging Provider: Samuel Thibodeaux Primary Care Provider: Dr. Lisa Crowe Condition at Discharge: Poor Discharge Disposition: 50 Hospice/Home DC/Xfer Discharge Facility Name: home - DIAGNOSES Discharge Diagnoses with Status of Each Condition: (1) Encounter for hospice care Patient and the patient's DPOA all want to have hospice care for patient. Hospice Dr Marquez assessed and accepted patient but with a condition which is Patient needed extra caregiver. farmworker cranberry confirmed with pt's DPOA that the plan is for pt to discharge to home with hospice being able to admit the middle part of next week with the condition that extra career center director support is hired to help pt. Pt's DPOA reported that he wanted to watch pt in the next couple of days and see if pt needs additional care and how much. farmworker cranberry provided pt's DPOA with the contact information to Hospice to coordinate admission and care of patient, advise pt followup with hospice care as his wish. Patient wanted Oxycodone pain medication as needed which is prescribed for pt (2) Acute on chronic respiratory failure with hypoxia stable, Continue home oxygen supplement. (3) Atypical pneumonia Improved, patient wanted to have treatment and is prescribed antibiotics (4) Malignant neoplasm of left lung stage 4 Follow-up with hospice care (5) Dissecting aneurysm of thoracic aorta, [place] type B hospice care (6) Prostate cancer hospice care (7) Diastolic heart failure stable (8) COPD (chronic obstructive pulmonary disease) Continue home oxygen Supplement (9) Chronic back pain Patient prescribed pain medication (10) HTN (hypertension) Stable - HPI History of Present Illness: This is a 69 years old male with a past medical history significant for Chronic oxygen dependent respiratory failure with stage IV non-small cell lung cancer with status post chemotherapy and left lobectomy, Prostate cancer, diastolic heart failure, 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 Patient usually uses 2 L oxygen in the home. Patient recognized his function continued decline, He look for hospice care. In the ER his oxygen saturation was about 60% on room air, On 4 L oxygen patient has 80% of sats. Chest x-ray show postoperative change on left lung and interstitial prominence which was read as CHF plus infection. Patient agree to treat his lung infection but Does not want any procedure, not want any aggressive or even no lab test or no tele monitor, and focus on comfortable. He hopes social work to help him seek for hospice care. - HOSPITAL COURSE Hospital Course: Patient was admitted to the hospital for acute respiratory failure with hypoxia. Patient has a very complicated medical history of Lung cancer stage IV, dissecting type B thoracoabdominal aneurysm, and heart failure, pt and pt's DPOA request hospice care. Patient was consulted with hospice care, And patient was accepted by hospice team But pt was required to have extra care for patient in the home. Patient and the patient's DPOA know this condition, Agreed to follow- up with hospice care. - ALLERGIES Allergies/Adverse Reactions: Allergies Allergy/AdvReac Type Severity Reaction Status Date / Time methadone [From Dolophine] Allergy Unknown Verified 08/11/20 21:47 Penicillins Allergy Rash Verified 08/11/20 21:47 - MEDICATIONS Home Medications: Ambulatory Orders Medication Instructions Recorded Confirmed Labetalol [Trandate] 200 mg PO TID 02/27/13 08/12/20 Gabapentin [Neurontin] 900 mg PO 0800,1600 05/16/16 08/12/20 Sennosides/Docusate Sodium 3 tab PO BID 05/17/16 02/16/19 [Senna-S Tablet] Acetaminophen 650 mg PO TID 02/16/19 08/12/20 Amlodipine Besylate 2.5 mg PO DAILY 02/16/19 08/12/20 Gabapentin 1,200 mg PO QPM 02/16/19 08/12/20 Ipratropium/Albuterol [Duoneb] 3 ml INH QID 02/16/19 08/12/20 diazePAM [Diazepam] 5 mg PO 0800,1600 02/16/19 08/12/20 diazePAM [Diazepam] 10 mg PO QPM 02/16/19 08/12/20 Furosemide [Lasix] 60 mg PO DAILY 08/12/20 08/12/20 cefUROXime axetiL [Ceftin] 500 mg PO BID #10 tablet 08/14/20 oxyCODONE [Roxicodone] 5 mg PO Q4-6H PRN #30 tablet 08/14/20 - PHYSICAL EXAM AT DISCHARGE General Appearance: positive: No acute distress, Alert. negative: Lethargic Eyes Bilateral: positive: Normal inspection, PERRL, No lid inflammation ENT: positive: ENT inspection nml, No signs of dehydration. negative: Purulent nasal drainage Neck: positive: Nml inspection, Trachea midline. negative: Thyromegaly, Tracheal deviation Respiratory: positive: Chest non-tender, Other (diminished lung sound bilaterally). negative: Wheezes Cardiovascular: positive: Regular rate & rhythm, No murmur. negative: Tachycardia, Bradycardia, Systolic murmur, Diastolic murmur Peripheral Pulses: positive: 2+ Abdomen: positive: Non-tender, Nml bowel sounds, No distention. negative: Tenderness Back: positive: Nml inspection Skin: positive: Color nml, Warm, Dry. negative: Cyanosis Extremities: positive: Non-tender. negative: Calf tenderness Neurologic/Psychiatric: positive: Sensation nml, Mood/affect nml. negative: Sensory loss, Facial droop, Slurred/abnml speech - LABS Result Diagrams: 08/11/20 22:17 08/11/20 22:17 - FOLLOW UP Follow Up: you want to treat your pneumonia, antibiotics Ceftin is prescribed for you, and pain medication Morphine is prescribed for you as well. farmworker cranberry confirmed with Your DPOA that the plan is for you to discharge to home with hospice being able to admit the middle part of next week with the condition that extra career center director support is hired to help you. Your DPOA reported that he wanted to watch you the next couple of days and see if you needs additional care and how much. farmworker cranberry provided your DPOA with the contact information to Hospice to coordinate admission and care of patient, advise you followup with hospice care as your wish. you may followup with hospice care in the next week. Should your plan change or your symptoms return or worsen, you may present ER or call 911 for help. - TIME SPENT Time Spent in Discharge (Minutes): 30
[2020-08-14] MEDS ORDERED: SENNA 8.6 MG TABLET PO SCH (17:00)
[2020-08-14] MEDS ORDERED: DOCUSATE SODIUM 250 MG CAPSULE PO SCH (17:00)
[2020-08-15] MEDS ORDERED: SENNA 8.6 MG TABLET PO SCH (09:00)
== END 2020-08-14 17:45 | disposition hospice, home (50) | DRG 189 ==
LOC: ED 21:35 → MS2 08-12 00:05
PROVIDERS: ADMIT Internal Medicine; ATTEND Nurse Practitioner Gerontology
DX: R09.02 Hypoxemia (principal); I50.9 Heart failure, unspecified; R09.89 Other specified symptoms and signs involving the circulatory and respiratory systems; Z85.118 Personal history of other malignant neoplasm of bronchus and lung; J43.9 Emphysema, unspecified; J96.22 Acute and chronic respiratory failure with hypercapnia; Z90.2 Acquired absence of lung [part of]; J18.9 Pneumonia, unspecified organism; I71.01 Dissection of thoracic aorta; C34.90 Malignant neoplasm of unspecified part of unspecified bronchus or lung; I50.30 Unspecified diastolic (congestive) heart failure; I24.9 Acute ischemic heart disease, unspecified; J96.21 Acute and chronic respiratory failure with hypoxia; Z99.81 Dependence on supplemental oxygen; Z87.891 Personal history of nicotine dependence; Z51.5 Encounter for palliative care; C61 Malignant neoplasm of prostate; I11.0 Hypertensive heart disease with heart failure; J44.9 Chronic obstructive pulmonary disease, unspecified; M54.9 Dorsalgia, unspecified; G89.29 Other chronic pain; Z66 Do not resuscitate; Z79.51 Long term (current) use of inhaled steroids; Z79.899 Other long term (current) drug therapy; E78.5 Hyperlipidemia, unspecified; F41.9 Anxiety disorder, unspecified; F32.9 Major depressive disorder, single episode, unspecified
CPT/HCPCS: 36415; 71045; 80053; 83690; 83735; 83880; 84484; 85025; 87631; 93005; 94640; 96374; 96375; 99281; 99285; A9270; J7512; 0202U

== ENCOUNTER 2020-09-19 04:24 | Outpatient (CLI) | payer MEDICARE | END 2020-09-19 04:25 | disposition E | LOC: EMS 04:24 ==